=== PATIENT | male | born 1940 | race Caucasian/White ===

== ENCOUNTER 2016-12-19 16:14 | Inpatient (IN) ==
[2016-12-19] MEDS ORDERED: NS 3,000 ML ONE (16:41)
[2016-12-19] MEDS ORDERED: ADENOCARD ONE (16:41)
[2016-12-19] MEDS ORDERED: ASPIRIN PO STA (16:42)
[2016-12-19] MEDS ORDERED: AMIDATE ONE (16:52)
[2016-12-19] MEDS ORDERED: MORPHINE ONE (16:52)
[2016-12-19 17:15] LABS: BLOOD TYPE ARTERIAL; SAMPLE BLOOD
[2016-12-19] MEDS ORDERED: NS 1,000 ML IV ONE ×2 (17:16→17:18)
[2016-12-19] MEDS ORDERED: AMIDATE IV ONE (17:16)
[2016-12-19] MEDS ORDERED: ADENOCARD IV ONE ×2 (17:17)
[2016-12-19 17:18] LABS: ALLEN TEST NO; BE -3.8 mmoll (-3.0-3.0); DRAW SITE R BRACHIAL; PCO2(98.6) 28 mmHg (35-45); PO2(98.6) 79 mmHg (60-100); pH(98.6) 7.44 (7.35-7.45)
[2016-12-19 17:19] LABS: MODALITY CANNULA
[2016-12-19 17:36] LABS: MANUAL DIFF NEEDED? NO
[2016-12-19 17:42] LABS: BASO% 0.3 % (0.0-0.8); HEMATOCRIT 30.3 % (42.0-52.0); HEMOGLOBIN 10.1 g/dL (14.0-18.0); IMM GRAN# 0.43 X1000 (0.0-0.04); IMM GRAN% 2.6 % (0.0-0.5); LYMPH# 1.58 X1000 (1.2-3.4); LYMPH% 9.5 % (20.5-51.1); MCH 30.8 PG (27-31); MCHC 33.3 g/dL (33-37); MCV 92.4 FL (81-99); MONO# 1.07 X1000 (0.11-0.59); MONO% 6.4 % (1.7-9.3); MPV 9.7 FL (7.4-10.4); NEUT% 81.2 % (42.2-75.2); PLT 310 X1000 (130-400); RBC 3.28 XMIL (4.7-6.1)
[2016-12-19 17:51] LABS: INR 1.46; PROTIME 15.7 Seconds (9.2-11.7); PTT 30.6 Seconds (22.0-36.0)
[2016-12-19 18:03] LABS: AGAP 19; ALBUMIN 3.2 g/dL (3.5-5.0); ALKALINE PHOSPHATASE 60 U/L (32-122); BUN 42 mg/dL (8-22); CALCIUM 8.9 mg/dL (8.8-10.2); CHLORIDE 101 mmol/L (98-107); CK PROFILE 63 U/L (24-204); COSMO 295; GOT 15 U/L (10-34); GPT 13 U/L (10-44); MAGNESIUM 2.4 mg/dL (1.5-2.7); POTASSIUM 4.8 mmol/L (3.5-5.1); SODIUM 141 mmol/L (136-145); TCO2 21 mmol/L (25-35); TOTAL BILIRUBIN 1.56 mg/dL (0.20-1.00)
[2016-12-19] MEDS ORDERED: VANCOMYCIN 1 GM/NS 1 GM/250 ML IVPB IV ONE (18:26)
[2016-12-19] MEDS ORDERED: ZOSYN 2.25 GM/NS 2.25 GM/50 ML IVPB IV ONE (18:27)
--- NOTE | 2016-12-19 18:36 | PROVIDER DOCUMENTATION ---
This chart was entered by Vivian Rios Scribe, acting as scribe for Derrek Martinez MD. HPI-Cardiac General - General Chief Complaint: Weakness Stated Complaint: WEAKNESS/DIZZINESS Time Seen by Provider: 12/19/16 16:45 Source: patient, family Allergies/Adverse Reactions: Patient Allergies Allergy/AdvReac Type Severity Reaction Status Date / Time No Known Allergies Allergy Verified 12/19/16 17:55 Home Medications: Home Medication List Medication Instructions Recorded Confirmed Last Taken Type Budesonide/Formoterol Fumarate 2 puff PO BID 01/23/16 12/19/16 12/19/16 History [Symbicort 160-4.5 Mcg Inhaler] Dexamethasone 2 mg PO BID 12/19/16 12/19/16 12/19/16 History Dronabinol [Marinol] 2.5 mg PO QHS 12/19/16 12/19/16 12/18/16 History Hydrocodone/Acetaminophen [[place] 1 each PO Q4H PRN 12/19/16 12/19/16 12/19/16 History 5-325 Tablet] Methylphenidate HCl [Ritalin] 5 mg PO DAILY 12/19/16 12/19/16 12/19/16 History Rivaroxaban [Xarelto] 15 mg PO BID 12/19/16 12/19/16 12/19/16 History Temazepam [Restoril] 30 mg PO QHS 12/19/16 12/19/16 12/18/16 History Venlafaxine E.r. [Effexor Xr] 150 mg PO QHS 12/19/16 12/19/16 12/18/16 History - History of Present Illness-Cardiac Nature of Presenting Problem: PT IS A 76YOM PRESENTING TO THE ED C/O WEAKNESS. PTS FAMILY STATES THAT PT IS NORMALLY BED BOUND DUE TO STAGE 4 LUNG CANCER. PT C/O INCREASED SOB AND WEAKNESS. WHEN PT ARRIVED TO ED HE WAS IN A-FLUTTER W/ 2:[address] MARTINEZ AT BEDSIDE ATTEMPTING TO CARDIOVERT PT. Location: denies: substernal Quality of Pain: reports: none Severity in ED: severe Onset/Duration: just prior to arrival Timing: still present Context/Activities at Onset: reports: light activity Modifying Factors: improves with: nothing Palpitation Quality: irregular History of arrythmia: reports: other (A-FLUTTER) Recent use of:: reports: no stimulants Nitro Today/Relief: reports: no nitro taken today Aspirin Treatment Today: reports: no aspirin today Prior Chest Pain/Cardiac Workup: reports: echocardiography Associated Symptoms: reports: fatigue, nausea, shortness of breath, weakness. denies: abdominal pain, diaphoresis, syncope Similar Symptoms Previously?: No Recently Seen Here or By Another Healthcare Provider: No Review of Systems - Adult - REVIEW OF SYSTEMS - ADULT ROS:: ROS per family Constitutional: reports: see HPI, fatique. denies: fever, night sweats Eyes: reports: no symptoms reported Ears, Nose, Mouth & Throat: reports: no symptoms reported Cardiovascular: reports: see HPI, irregular heart rate, palpitations. denies: chest pain, syncope Respiratory: reports: see HPI, cough, shortness of breath. denies: wheezing Gastrointestinal: reports: no symptoms reported Genitourinary: reports: no symptoms reported Musculoskeletal: reports: no symptoms reported Integumentary: reports: no symptoms reported Neurological: reports: see HPI, dizziness/vertigo. denies: paresthesia, slurred speech Psychiatric: reports: no symptoms reported Endocrine: reports: no symptoms reported Hematologic/Lymphatic: reports: no symptoms reported Allergic/Immunologic: reports: no symptoms reported All Other Systems: Reviewed and Negative Past History - Adult - PAST MEDICAL HISTORY-ADULT Review of Records: reports: Old Records Reviewed, Nursing Assessment Review, Medications Reviewed, Social history reviewed & non-contributory. Major Childhood Illnesses: reports: denies history Cardiovascular: reports: denies history Respiratory: reports: denies history Gastrointestinal: reports: denies history Obstetrical/Gynecological: reports: denies history Genitourinary: reports: denies history Musculoskeletal: reports: denies history Neurological: reports: denies history Endocrine/Immune: reports: denies history Other Conditions: reports: denies history - IMMUNIZATION STATUS Childhood Immunizations: See Nurse Assessment Flu Vaccine: See Nurse Assessment - FAMILY HISTORY Family History: reviewed, not pertinent - SOCIAL HISTORY Smoking: cigarettes, less than 1 pack/day Provider spent 3-5 mins advising pt. on dangers of tobacco.: Discussed manners to quit use, and f/u contacts for add'l counseling. Substance Use: none/never, alcohol Alcohol Use Frequency: occasionally Number of drinks per typical drinking period:: 3-4 drinks Living Situation: family Physical Exam-General - PHYSICAL EXAM-ADULT Initial Vital Signs Reviewed: Yes - CONSTITUTIONAL General Appearance: alert, moderate distress, severe distress, thin. negative: appears well, no apparent distress - EYES Eyes: PERRL/EOMI, pink conjunctivae, fundi clear, no AV nicking - HEAD, EARS, NOSE, MOUTH & THROAT HENMT: normocephalic/atraumatic, moist mucous membranes, normal ENT inspection, TMs normal, pharynx normal - NECK Neck: non-tender, full range of motion, supple, normal inspection - RESPIRATORY Respiratory: chest non-tender, lungs clear, normal breath sounds, no pleuratic chest pain, no respiratory distress, no accessory muscle use - CARDIOVASCULAR Cardiovascular: no edema, no gallop, no JVD, no murmur, tachycardia. negative: normal peripheral pulses, regular rate, rhythm - GASTROINTESTINAL (ABDOMEN) Abdominal Exam: normal bowel sounds, non tender, soft, no organomegaly, no pulsatile mass - LYMPHATIC Lymphatic: no adenopathy - MUSCULOSKELETAL Back Exam: normal inspection, no CVA tenderness, no vertebral tenderness Extremity: non-tender, no pedal edema, no calf tenderness, normal capillary refill, pelvis stable. negative: normal range of motion, normal gait, normal inspection - SKIN Integumentary: normal turgor, warm/dry, cyanosis, pallor - NEUROLOGIC Neurologic: take out waitress II-XII nml as tested, grossly normal, no motor/sensory deficits - PSYCHIATRIC Psych/Mental Status: normal thought content, normal thought process, oriented x 3, depressed affect. negative: normal mood/affect Progress - PLAN OF CARE/RESULTS Progress/Plan/Lab Results: Vital Signs - 8 hr 12/19/16 16:18 12/19/16 17:40 12/19/16 17:52 Temperature 97.4 F L Pulse Rate 161 H 85 81 Respiratory Rate 24 25 H 16 Blood Pressure 118/68 170/74 152/88 O2 Sat by Pulse Oximetry 100 100 12/19/16 18:25 Temperature Pulse Rate 76 Respiratory Rate 16 Blood Pressure 139/74 O2 Sat by Pulse Oximetry 100 Laboratory Results - last 24 hr 12/19/16 12/19/16 12/19/16 16:35 16:35 16:35 WBC 16.65 H RBC 3.28 L Hgb 10.1 L Hct 30.3 L MCV 92.4 MCH 30.8 MCHC 33.3 RDW Std Deviation 15.6 H Plt Count 310 MPV 9.7 Immature Gran % (Auto) 2.6 H Neut % (Auto) 81.2 H Lymph % (Auto) 9.5 L [place] % (Auto) 6.4 Eos % (Auto) 0.0 Baso % (Auto) 0.3 Immature Gran # (Auto) 0.43 H Neut # (Auto) 13.52 H Lymph # (Auto) 1.58 [place] # (Auto) 1.07 H Eos # (Auto) 0.00 Baso # (Auto) 0.05 PT 15.7 H INR 1.46 PTT (Actin FS) 30.6 Specimen Type Sample Site pH pCO2 pO2 HCO3 Base Excess Fawad Test A-a O2 Difference Lactate Liter Flow Blood Gas Modality FiO2 % Sodium 141 Potassium 4.8 Chloride 101 Carbon Dioxide 21 L Anion Gap 19 BUN 42 H Creatinine 0.8 Estimated GFR/1.73 m2 > 60 BUN/Creatinine Ratio 53 Glucose 157 H Calculated Osmolality 295 Calcium 8.9 Magnesium 2.4 Total Bilirubin 1.56 H AST 15 ALT 13 Alkaline Phosphatase 60 Creatine Kinase 63 Troponin T Total Protein 6.0 L Albumin 3.2 L Globulin 2.8 Albumin/Globulin Ratio 1.1 12/19/16 12/19/16 16:35 17:05 WBC RBC Hgb Hct MCV MCH MCHC RDW Std Deviation Plt Count MPV Immature Gran % (Auto) Neut % (Auto) Lymph % (Auto) [place] % (Auto) Eos % (Auto) Baso % (Auto) Immature Gran # (Auto) Neut # (Auto) Lymph # (Auto) [place] # (Auto) Eos # (Auto) Baso # (Auto) PT INR PTT (Actin FS) Specimen Type ARTERIAL Sample Site R BRACHIAL pH 7.44 pCO2 28 L pO2 79 HCO3 21.9 Base Excess -3.8 L Fawad Test NO A-a O2 Difference 86.0 Lactate 2.80 H Liter Flow 2.0 Blood Gas Modality CANNULA FiO2 % 28.0 Sodium Potassium Chloride Carbon Dioxide Anion Gap BUN Creatinine Estimated GFR/1.73 m2 BUN/Creatinine Ratio Glucose Calculated Osmolality Calcium Magnesium Total Bilirubin AST ALT Alkaline Phosphatase Creatine Kinase Troponin T < 0.010 Total Protein Albumin Globulin Albumin/Globulin Ratio Orders Category Date Time Status Cardiac Monitoring DIRECTED Care 12/19/16 16:42 Active Celeste Cath Insertion ORDERED Care 12/19/16 18:24 Active Oxygen Therapy- ED Nursing DIRECTED Care 12/19/16 16:42 Active Saline Loc NOW Care 12/19/16 16:42 Active CHEST-PORTABLE [RAD] Stat Exams 12/19/16 16:42 Taken ABG [RESP] Routine Lab 12/19/16 17:05 Completed BC [BLOOD CULTURE] [BLDCUL] Stat Lab 12/19/16 18:25 Uncollected CBC WITH ELECTRONIC DIFF [HEME] Stat Lab 12/19/16 16:35 Completed CK PROFILE [SP CHEM] Stat Lab 12/19/16 16:35 Completed COMPREHENSIVE METABOLIC PANEL [CHEM] Stat Lab 12/19/16 16:35 Completed MAGNESIUM [CHEM] Stat Lab 12/19/16 16:35 Completed PRO B-NATRIURETIC PEPTIDE Stat Lab 12/19/16 16:35 Received PROTIME WITH INR [COAG] Stat Lab 12/19/16 16:35 Completed PTT [COAG] Stat Lab 12/19/16 16:35 Completed TROPONIN T Stat Lab 12/19/16 16:35 Completed UA NIMS W/REFLEX CULT [URINALYSIS] Stat Lab 12/19/16 18:25 Uncollected 0.9% Sodium Chloride Inj [Ns] 1,000 ml Med 12/19/16 16:41 Discontinued .ROUTE As Directed 0.9% Sodium Chloride Inj [Ns] 1,000 ml Med 12/19/16 17:16 Discontinued IV 999 mls/hr 0.9% Sodium Chloride Inj [Ns] 1,000 ml Med 12/19/16 17:18 Discontinued IV 999 mls/hr Adenosine [Adenocard] Med 12/19/16 16:41 Discontinued 18 mg .ROUTE .STK-MED ONE Adenosine [Adenocard] Med 12/19/16 17:17 Discontinued 6 mg IV NOW ONE Adenosine [Adenocard] Med 12/19/16 17:17 Discontinued 6 mg IV NOW ONE Aspirin Med 12/19/16 16:42 Discontinued 325 mg PO STAT STA Etomidate [Amidate] Med 12/19/16 16:52 Discontinued 40 mg .ROUTE .STK-MED ONE Etomidate [Amidate] Med 12/19/16 17:16 Discontinued 40 mg IV NOW ONE Morphine Med 12/19/16 16:52 Discontinued 2 mg .ROUTE .STK-MED ONE Piperacil/Tazobact 2.25 gm/Ns [Zosyn 2.25 gm/Ns] Med 12/19/16 18:27 Active 2.25 gm in 50 ml IV NOW Vancomycin 1 gm/Ns Med 12/19/16 18:26 Active 1 gm in 250 ml IV NOW EKG [EKG] Stat Ther 12/19/16 16:42 Ordered Result Diagrams: 12/19/16 16:35 12/19/16 16:35 - EKG 1 Time of EKG reading by physician:: 16:25 EKG Read and Signed by:: Derrek Martinez EKG Interpretation (*Must complete 3 of following elements*): Abnormal Rate: 161 Rhythm: A-FLUTTER W/ 2:[address] Wave: non-specific ST changes Prior EKG Comparison: changes noted 2 Time of EKG reading by physician:: 17:06 EKG Read and Signed by:: Derrek Martinez EKG Interpretation (*Must complete 3 of following elements*): Abnormal Rate: 89 Rhythm: SR W/ PAC'S Prior EKG Comparison: changes noted - XRAY 1 XRAY: Bilateral XRAY Study: Chest (CARDIOMEGALLY, PULMONARY VASCULAR CONGESTION) Procedures - CARDIOVERSION/DEFIBRILLATION Procedure, Risk, Benefits and Alternatives discussed with:: Patient, Family Members Consent form signed?: Yes Time-Out Verification Completed?: Yes Cardioverted/Defibrillated at:: 2 ROUNDS 6MG ADENOSINE AND DEFIBBED AT 75JULES Post Cardioversion/Defibrillation Rate: SR W/PAC'S Procedure Comment: PT CONVERTED SUCCESSFULLY Departure - Departure Time of Disposition Decision: 18:33 DIAGNOSIS: Shock circulatory, Atrial flutter, Lung cancer Disposition: ADMITTED INPATIENT 09 Certified Medical Emergency: Emergent Condition: Critical Referrals and Follow-Ups: Guzman Henning MD [Primary Care Provider] - - Critical Care Note This patient required my direct personal management.: Yes Total Time (mins): 60 (DR MARTINEZ) Critical Care Statement: This patient required my direct personal management to treat or rule out processes, the absence of which, could potentiallly result in sudden, clinically significant life or limb threatening deterioration. This chart was documented by the indicated scribe, (Vivian Rios Scribe) and accurately reflects the services I performed and decisions made by me, Derrek Martinez MD, as attested by the provider's signature.
[2016-12-19 19:43] LABS: URINE CULTURE NEEDED? NO; URINE MICRO REVIEW NEEDED? NO; URINE SOURCE CATH
[2016-12-19 19:51] LABS: BILIRUBIN URINE NEGATIVE (NEGATIVE); BLOOD URINE NEGATIVE (NEGATIVE); COLOR YELLOW; GLUCOSE URINE NEGATIVE (NEGATIVE); LEUKOCYTES URINE NEGATIVE (NEGATIVE); NITRITE URINE NEGATIVE (NEGATIVE); PH URINE 5.5; PROTEIN URINE TRACE mg/dL (NEGATIVE); SP GRAVITY URINE 1.021; TURBIDITY URINE CLEAR (CLEAR); UROBILINOGEN URINE NORMAL (NORMAL)
[2016-12-19 19:53] LABS: UR EPITHELIAL CELLS <10 /HPF (<10); URINE BACTERIA NEGATIVE /HPF; URINE RBC <10 /HPF (<10); URINE WBC <10 /HPF (<10)
[2016-12-19] MEDS ORDERED: CARDIZEM IV ONE (21:05)
[2016-12-19] MEDS ORDERED: CARDIZEM 100 MG/NS 100 MG/100 ML IVPB ONE (21:17)
[2016-12-19] MEDS: CARDIZEM 100 MG/NS 100 MG/100 ML IVPB IV SCH ×3 (21:19→22:49)
[2016-12-19] MEDS ORDERED: ZOFRAN IV PRN (21:41)
[2016-12-19] MEDS ORDERED: LEVOPHED 8 MG in D5 1/2 NS 250 ML IV SCH (22:45)
[2016-12-19] MEDS ORDERED: TYLENOL PO PRN (23:54)
[2016-12-20] MEDS: PROTONIX IV SCH (02:07)
[2016-12-20] MEDS: SODIUM CHLORIDE 0.9% INJ SCH (02:08)
[2016-12-20] MEDS ORDERED: VANCOMYCIN IV PER PHARMACY MISC SCH (02:45)
[2016-12-20] MEDS: ZOSYN 3.375 GM/NS 3.375 GM/50 ML IVPB IV SCH ×4 (03:22→20:14)
[2016-12-20] MEDS ORDERED: VANCOMYCIN 500 MG/NS 500 MG/100 ML IVPB IV ONE (04:00)
[2016-12-20 04:59] LABS: MANUAL DIFF NEEDED? NO
[2016-12-20 05:02] LABS: BASO% 0.2 % (0.0-0.8); EOS# 0.03 X1000 (0.0-0.7); EOS% 0.2 % (0.0-10.0); HEMATOCRIT 25.5 % (42.0-52.0); HEMOGLOBIN 8.4 g/dL (14.0-18.0); IMM GRAN# 0.39 X1000 (0.0-0.04); IMM GRAN% 2.4 % (0.0-0.5); LYMPH# 1.78 X1000 (1.2-3.4); LYMPH% 11.1 % (20.5-51.1); MCH 30.5 PG (27-31); MCHC 32.9 g/dL (33-37); MCV 92.7 FL (81-99); MONO# 1.36 X1000 (0.11-0.59); MONO% 8.4 % (1.7-9.3); MPV 9.4 FL (7.4-10.4); NEUT% 77.7 % (42.2-75.2); PLT 252 X1000 (130-400); RBC 2.75 XMIL (4.7-6.1)
[2016-12-20 05:26] LABS: AGAP 12; ALBUMIN 2.7 g/dL (3.5-5.0); ALKALINE PHOSPHATASE 50 U/L (32-122); BUN 33 mg/dL (8-22); CALCIUM 7.8 mg/dL (8.8-10.2); CHLORIDE 110 mmol/L (98-107); COSMO 293; GOT 13 U/L (10-34); GPT 10 U/L (10-44); MAGNESIUM 2.1 mg/dL (1.5-2.7); POTASSIUM 4.4 mmol/L (3.5-5.1); SODIUM 144 mmol/L (136-145); TCO2 22 mmol/L (25-35); TOTAL BILIRUBIN 1.54 mg/dL (0.20-1.00); TOTAL PROTEIN 5.1 g/dL (6.3-8.3)
--- NOTE | 2016-12-20 05:50 | EKG Report ---
Test Performed on : 12/19/2016 9:08:17 PM Test Reason : CP Blood Pressure : / mmHG Vent. Rate : 158 BPM Atrial Rate : 159 BPM P-R Int : 000 ms QRS Dur : 080 ms QT Int : 294 ms P-R-T Axes : 000 017 007 degrees QTc Int : 476 ms Supraventricular tachycardia. Low voltage QRS Nonspecific ST and T wave abnormality Abnormal ECG When compared with ECG of 19-DEC-2016 17:06, (Unconfirmed) Sinus rhythm. has replaced Atrial fibrillation. Vent. rate has increased BY 69 BPM Questionable change in QRS duration Unconfirmed Result
--- NOTE | 2016-12-20 05:50 | EKG Report ---
Test Performed on : 12/19/2016 5:06:34 PM Test Reason : Chest Pain Blood Pressure : / mmHG Vent. Rate : 089 BPM Atrial Rate : 312 BPM P-R Int : 000 ms QRS Dur : 058 ms QT Int : 360 ms P-R-T Axes : 000 061 063 degrees QTc Int : 438 ms Atrial fibrillation. Nonspecific ST and T wave abnormality Abnormal ECG When compared with ECG of 19-DEC-2016 16:25, (Unconfirmed) Atrial fibrillation. has replaced Atrial flutter. Vent. rate has decreased BY 72 BPM Unconfirmed Result
--- NOTE | 2016-12-20 05:50 | EKG Report ---
Test Performed on : 12/19/2016 4:25:15 PM Test Reason : SOB/WEAKNESS Blood Pressure : / mmHG Vent. Rate : 161 BPM Atrial Rate : 322 BPM P-R Int : 000 ms QRS Dur : 110 ms QT Int : 286 ms P-R-T Axes : 055 073 076 degrees QTc Int : 468 ms Atrial flutter. with 2:[address] abnormality Abnormal ECG No previous ECGs available Unconfirmed Result
--- NOTE | 2016-12-20 07:45 | Diag Imaging Result Document ---
PROCEDURE NAME: CHEST-PORTABLE - 12/19/2016 AP PORTABLE CHEST: TIME: 1720 hours. FINDINGS: The inspiration is suboptimal. Considering the degree of inspiration and the technical differences, there has been no significant change since 01/23/2016. IMPRESSION: Stable chest.
[2016-12-20] MEDS: XARELTO PO SCH (08:35)
--- NOTE | 2016-12-20 09:07 | HISTORY AND PHYSICAL ---
PRIMARY CARE PROVIDERS: Dr. Raghav Henning. ONCOLOGIST: Tigre Agee MD. CHIEF COMPLAINT: Increasing weakness and dizziness. HISTORY OF PRESENT ILLNESS: Mr. Funes is a 76-year-old, male with past medical history of COPD and stage IV non-small cell lung cancer. He presented to the ER tonight with complaints of increased weakness. He also reports that he has felt dizzy intermittently for the past 3 days. Though he did report some shortness of breath upon arrival to the ER, he denied having any shortness of breath, chest pain or feelings of palpitations over the last few days. His daughter who is at bedside who helps care for him states that he has not had a lot of energy lately, and states that he has been bed bound and has not been getting up. She also reports that he has had increased number of falls. She states that he fell off of the toilet several days ago and approximately 2-3 days ago he fell out of bed. She did report that approximately 2-3 days ago they did give him a new prescription for Ritalin 5 mg p.o. daily, as well as a did increase his dosage of Effexor XR to 150 mg p.o. at bedtime from 75 mg previously. Patient does see Dr. Agee, though he missed his last appointment. He denied any history of chemotherapy or radiation therapy for treatment of his lung cancer, though she did report that he has previously received Opdivo. The patient also has a history of having a pulmonary embolism and a right lower extremity DVT approximately 3 months ago for which he was placed on Xarelto 15 mg twice a day. He does report a productive cough with clear sputum for approximately 3 weeks. He denies any fever, body aches, or chills. He denies any headache, chest pain, palpitations, abdominal pain, nausea, vomiting, diarrhea, or constipation. He reports that his last bowel movement was yesterday morning. He denies any hematochezia or melena. He denies any dysuria or urinary frequency. He denies any pain, numbness, tingling or swelling in extremities. Upon evaluation in the ER, the patient was found to have an elevated heart rate of 161. Respirations were 24, blood pressure was 118/68, temperature was 97.4 degrees, oxygen saturation was 100% nasal cannula at 4 L. Initial EKG showed atrial flutter with 2-1 AV conduction at a rate of 161; QTc was 468. The patient was given two separate doses of adenosine 6 mg each. Unfortunately his heart rate did not improve. He was subsequently cardioverted in the ER. During my assessment in the ER the patient did convert back to what appeared to be an atrial flutter rhythm again anywhere from 160- 170. He was given a 10 mg Cardizem push which did slow his heart rate down to 130, though this quickly increased back up to 160. He was subsequently placed on a Cardizem drip. We started this at 5 mg and have been titrating this to effect. The patient did previously receive 2 L normal saline bolus upon arrival to the ER, and at this time fortunately he has been maintaining adequate blood pressures. Patient does have crackles noted in bilateral lower lobes, as well as some expiratory wheezing noted as well. His chest x-ray at this time does not appear to have any findings of pulmonary edema, pleural effusions or pneumonia, though it is consistent with the findings for COPD disease. We will admit the patient for further treatment and evaluation of his new onset atrial flutter. He will be placed in the ICU. REVIEW OF SYSTEMS: A 12 point review of systems was conducted with the patient. All were negative except for pertinent positives mentioned above in the HPI. PAST MEDICAL HISTORY: 1. COPD disease. 2. Non-small cell lung cancer reported in right upper lobe and left lower lobe. 3. The patient does have a history of pulmonary embolism and a right lower extremity DVT. PAST SURGICAL HISTORY: Left knee surgery. SOCIAL HISTORY: The patient reports that he smoked 1/2 pack of cigarettes a day for 60 years, though quit approximately 2 weeks ago. He does report occasional alcohol use stating that he drinks a beer every now and then. Though denies any illicit drug use. FAMILY HISTORY: Positive for diabetes mellitus. ALLERGIES: Patient reports no known allergies. HOME MEDICATIONS: 1. Symbicort 160 mg-4.5 mcg inhaler 2 puffs p.o. b.i.d. 2. Dexamethasone 2 mg p.o. b.i.d., 2 tablets in the morning and 1 in the afternoon. 3. Marinol 2.5 mg p.o. at bedtime. 4. Pickering 5 mg 1 p.o. q.4 hours p.r.n. 5. Ritalin 5 mg p.o. daily. 6. Xarelto 15 mg p.o. b.i.d. 7. Restoril 30 mg p.o. at bedtime. 8. Effexor XR 150 mg p.o. at bedtime. DIAGNOSTIC DATA/LABORATORY RESULTS: White blood cell count 16.65, hemoglobin 10.1, hematocrit 30.3, platelet count is 310,000. PT 15.7, INR 1.46, PTT 30.6. Sodium 141, potassium 4.8, chloride 101, bicarb 21, BUN 42, creatinine 0.8, GFR greater than 60. Glucose was 157, repeat fingerstick blood sugar was 78, calcium 8.9, magnesium 2.4, total bilirubin is 1.56. AST 15, ALT 13, alkaline phosphatase 60, CK 63, troponin less than 0.01. ProBNP was 1056. Plasma lactate 1.3. Arterial blood gases were obtained on a nasal cannula at 2 L; pH 7.4, pCO2 28, PO2 79, HC03 21.9 with a base excess of -3.8. Urinalysis obtained via cath was positive for trace protein and trace ketones. It was negative for blood and nitrites, leukocytes, white blood cells with bacteria. EKG showed atrial flutter with 2:1 AV conduction at a rate of 161 with a QTc of 468. Chest x-ray showed findings of COPD disease, though no obvious pneumonia, pleural effusions or pulmonary edema present, but we are awaiting the official radiology over read. PENDING DIAGNOSTIC STUDIES: At this time, repeat cardiac enzymes as well as blood cultures. PHYSICAL EXAMINATION: VITAL SIGNS: Temperature 98.6 degrees, heart rate is 84. Respirations 16, blood pressure 150/77, oxygen saturation is 100% nasal cannula at 2 L. GENERAL: Mr. Funes is a pleasant 76-year-old, male, who was resting in the ER stretcher. He is in no acute distress. He was awake, alert, able to answer all questions appropriately. HEENT: Head is atraumatic, normocephalic. Pupils are equal, round, reactive to light. Were 3 mm bilaterally and brisk. Subconjunctivae were slightly pale. Oral mucosa was moist. Oropharynx was clear. NECK: Supple. Trachea midline. No JVD noted. No carotid bruits noted upon auscultation bilaterally. CARDIOVASCULAR: Patient has normal S1, S2. No murmurs, gallops, or rubs appreciated with a regular rate in the 80s with a slightly irregular rhythm. At this time the patient appears to be in sinus rhythm with occasional PACs and PVCs as well. PULMONARY: Patient has symmetrical chest expansion bilaterally. The lung moreno did have some expiratory wheezing noted. Bilateral lower lung moreno have crackles noted. The patient's oxygen saturation at this time is nasal cannula 100% NC @ 2L. ABDOMEN: Soft, nontender, nondistended. Bowel sounds are present in all 4 quadrants and were normoactive. GENITOURINARY: Patient has a Celeste catheter in place with light kandis colored urine noted to Celeste drainage bag. EXTREMITIES: No cyanosis, clubbing, or edema noted. Motor and sensory were intact in all extremities. Radial pulses were 2+ bilaterally. Pedal pulses were 2+ bilaterally. Capillary refill is less than 3. INTEGUMENTARY: The patient's skin is pink, warm, dry, and intact. No lesions or sores noted, though the patient does have some areas of ecchymosis from reported falls on the bilateral arms and elbows, as well as a large area of ecchymosis that runs from just above his posterior left knee up to his left buttock area. NEUROLOGICAL: Patient is alert, oriented to person, place, time, and situation. Cranial nerves 2- 12 appear to be grossly intact. ASSESSMENT AND PLAN: 1. New onset atrial flutter. At this time the patient is on a Cardizem drip. He is presently in sinus rhythm with occasional PACs. We will continue to monitor his heart rate closely as well as his blood pressure. We have placed a consult with cardiology for Dr. Basurto and will await their evaluation and further recommendations as well. We will do a series of cardiac enzymes and perform an echocardiogram in the morning. The patient was previously Xarelto 15 mg twice a day for the diagnosis of a pulmonary embolism and DVT 3 months ago. He states he has been taking this dosage since being diagnosed with his pulmonary embolism and deep venous thrombosis. We have changed this to 20 mg p.o. daily and we will continue to follow. 2. Stage IV [id number] lung cancer. For this we have placed a consult with Dr. Agee and will await his evaluation and further recommendations. 3. Chronic obstructive pulmonary disease. We will continue the patient's Symbicort. We have placed a p.r.n. order for a DuoNeb treatment as needed and will continue to follow as well. 4. Leukocytosis. Patient did have a white blood cell count of 16.65, though at this time this is of certain of uncertain etiology. The patient's chest x-ray showed no signs of a pneumonia. His urinalysis was negative. He has been placed on antibiotics of vancomycin and Zosyn. Blood cultures have been obtained and we will continue to monitor him closely and rule out any other signs of infection. 5. History of pulmonary embolism and a right lower extremity deep venous thrombosis. Previously mentioned, we will continue the patient's Xarelto, though have changed this to 20 mg p.o. once daily. 6. Weakness. Patient's daughter reports that he has had increased weakness and has been bed bound. She reports that the patient has had decreased energy. He has been not wanting to get out of bed. He also has had increased number of falls. She states that he has been eating well up until the past few days. We will place a consult for dietary as well as social sciences chair and case management for possible rehab placement or home health upon the patient' s discharge. Once the patient's condition is improved and he is more stable. We will also place a consult for physical therapy. 7. The patient was placed on ICU with telemetry. He will have vital signs per ICU protocol. Deep vein thrombosis prophylaxis is currently being provided with Xarelto. He will be on regular diet, though after midnight we have placed him NPO for his cardiology consult in the morning. We will repeat an EKG in the morning as well as a CBC, CMP and magnesium. I did discuss with the patient his wishes towards his code status, and the patient did state that he wanted to be a full code. He did want CPR and intubation, as well as life- saving cardiac drugs to be given if necessary. Further orders and recommendations pending hospital course, diagnostic studies and physician evaluation. Dictated by EMIL Morris for Harley Sidhu MD cc: MD Tigre Willoughby MD Lloyd James, MD MTDD
--- NOTE | 2016-12-20 12:05 | PROGRESS NOTE ---
DATE: 12/20/2016 Apparently presented to the emergency room with weakness and dizziness. MEDICATION AT HOME: He was on budesonide or Symbicort inhaler, dexamethasone 2 mg b.i.d., Marinol 2.5 mg at bedtime, hydrocodone acetaminophen which was 5-325 one q.4 hours. He was on Ritalin 5 mg a day. Xarelto 50 mg b.i.d. Restoril 30 mg at bedtime, and Effexor 150 mg daily. Presents with weakness. Normally he is bed-bound due to stage IV lung cancer. Patient complained of increased shortness of breath and weakness. Patient arrived in the emergency room. He was in atrial flutter with 2:1 conduction and I think attempt to chemical cardiovert. PAST MEDICAL HISTORY: I am not sure I have much information on that right now. Presently he is ICU bed 5. He was awake. Just finished an echocardiogram. Temp 97.8, pulse 74, respirations 17, blood pressure 130/67.HEENT: Pupils are equal, round. Lungs: Are clear in all lung moreno. Cardiovascular: Regular rhythm and rate without murmur or S3. Abdomen: Soft. Skin: Is warm and dry. Urine output 700 mL. White count 73472. Hematocrit 25, platelet count 252,000. That was this morning. Hemoglobin was 10 yesterday and hematocrit was 30. Electrolytes: Sodium 144, potassium 4.4, chloride 110, bicarb 22, BUN 33, creatinine 0.6. Chest x-ray from yesterday, stable chest. Under review back in past medical history, he has had a previous CT of his chest on 12/02/2016. Some fibrosis in the right upper lobe apex. There is speculated nodule present medially in the right upper lobe, decreased from 3.1 to 2.6 cm in the transverse dimension so improved lesion in the right upper lobe and left lower lobe. Otherwise that was stable. EKG this morning, supraventricular tachycardia. Low-voltage QRS. Nonspecific ST and T-wave abnormality. Rate is approximately 158. Not sure this may be flutter with 2:1 conduction. 1. Generalized weakness. 2. Apparently lung mass with lung cancer. Not sure if his history, see if we can obtain some furthe r history. Treating him for possible pneumonia as well. Dose of Zosyn and vancomycin. He is on Zosyn and vancomycin now, Zosyn 3.375 mg IV q.6. vancomycin 1.4 g daily every 30 hours, Xarelto 20 mg a day. Protonix 40 mg IV q.24 hours. He is on a [facility] drip. Dr. Agee is consulted. Dr. Basurto consulted. cc: Fawad Anderson MD
[2016-12-20] MEDS: CARDIZEM CD PO SCH (12:35)
--- NOTE | 2016-12-20 12:58 | CONSULTATION ---
DATE OF CONSULTATION: 12/20/2016 REASON FOR CONSULTATION: Cardiology was consulted. The patient had atrial flutter and underwent cardioversion in the emergency room. HISTORY OF PRESENT ILLNESS: The patient is a 76-year-old gentleman with history of COPD, stage IV non-small cell lung cancer, came to the emergency room with complaints of increasing weakness. He was noted to be dizzy as well. Was noted to be in atrial flutter, rapid ventricular rate. Cardizem was given. Subsequently his heart rate went up. He was cardioverted to sinus rhythm. At the current time he is on Cardizem drip, in sinus rhythm. He does not complain of chest pain suggestive of angina. He has had multiple problems with pulmonary embolism in the past. He is on anticoagulation therapy with Xarelto. Was diagnosed to have multiple emboli as well as DVT in the past. From a cardiac standpoint, denies chest pain. There is no discomfort. REVIEW OF SYSTEM: Fourteen point review of system was done.GI system: There is no history of nausea, vomiting, or diarrhea. There is no history of hematemesis or melena. Central nervous system: No focal weakness to suggest a CVA or TIA. Genitourinary: There is no dysuria or hematuria. PAST MEDICAL HISTORY: 1. COPD. 2. Non-small cell carcinoma involving the right upper and left lower lobe. 3. History of pulmonary embolism and DVT in the past. 4. Left knee surgery. SOCIAL HISTORY: Patient smoked a half pack of cigarettes a day for 60 years; quit 2 weeks ago. Does not complain of alcohol abuse. FAMILY HISTORY: Positive for diabetes. ALLERGIES: Patient is not known to be allergic to any medications. MEDICATIONS: Home medications include Symbicort 160, Xarelto, Restoril, Effexor, Hooper, Marinol. PHYSICAL EXAMINATION: Vital Signs: Blood pressure 124/59. Cardiovascular System: Normal jugular venous pressure. There is no thyromegaly. No carotid bruit. First and second heart sounds heard. There was no S3 gallop. Respiratory System: Normal air entry. There was scattered wheeze. Abdomen: Soft, nontender. There was no guarding or rigidity. Bowel sounds were heard. Central nervous system: Alert. Was moving all 4 extremities. Extremities: Examination of extremities reveals no pedal edema. LABORATORY EXAMINATION: Revealed hemoglobin 8.4, hematocrit 25, platelet count of 252,000, WBC 16.10. Sodium 144, potassium 4.4, BUN 33, creatinine 0.6. Cardiac enzymes negative. Chest x-ray on 12/19/2016 unremarkable. ASSESSMENT AND PLAN: 1. Mr. Eddie Funes is a 76-year-old gentleman who came to the emergency room with weakness, was noted to be in atrial flutter, cardioverted to sinus rhythm. 2. He is currently in sinus rhythm. We will discontinue the Cardizem drip. Change him to Cardizem CD 120 mg a day. He has had an echocardiogram earlier this morning. 3. He has had deep vein thrombosis and pulmonary emboli in the past and was Xarelto 15 b.i.d. which has been changed to 20. There is a drop in hemoglobin and hematocrit. Would recommend continue watching the hemoglobin and hematocrit. 4. I have not made any other changes or recommendations from a cardiac standpoint. Thank you for the consult. We will follow hospital course. cc: Pro Basurto MD
[2016-12-20] MEDS: CARDIZEM 100 MG/NS 100 MG/100 ML IVPB IV SCH (14:04)
[2016-12-20] MEDS: DUONEB (A & A) INH PRN (15:32)
[2016-12-20] MEDS: NORCO-5 PO PRN (20:14)
--- NOTE | 2016-12-20 20:20 | ECHO REPORT ---
ORDER DATE: 12/20/2016 MEASUREMENTS: Left ventricular end-diastolic diameter 3.5, end-systolic diameter 2.9, posterior wall thickness not measured, septal thickness 0.9, left atrium 2.8, aortic root 3.4. SUMMARY: 1. Technically difficult study due to limited acoustic window quality. 2. Trileaflet aortic valve appears sclerotic but opens adequately on 2-dimensional images. Peak gradient across aortic valve is 27 mmHg with a mean gradient of 12.9 mmHg. Mitral and tricuspid valves are without structural abnormality with mild tricuspid regurgitation. The estimated systolic PA pressure by Doppler is 25 to 30 mmHg. Pulmonic valve is not well demonstrated. The aortic root is normal in size. 3. Normal left ventricular dimension suggested. Estimated left ejection fraction appears to be at least 55%. No obvious wall motion abnormality can be appreciated. Left atrium, right atrium, and right ventricle are normal in size with normal right ventricular systolic function. 4. No pericardial effusion. 5. Appearance of inferior vena cava suggests normal central venous pressure. CONCLUSIONS: 1. Technically difficult study. 2. Aortic valve sclerosis with minimal aortic stenosis. 3. Mild tricuspid regurgitation. 4. Normal left ventricular ejection fraction. cc: Cuong Diaz MD
[2016-12-21] MEDS: SODIUM CHLORIDE 0.9% INJ SCH ×2 (00:26→20:16)
[2016-12-21] MEDS: PROTONIX IV SCH ×2 (00:26→22:48)
[2016-12-21] MEDS: CARDIZEM 100 MG/NS 100 MG/100 ML IVPB IV SCH ×3 (00:33→19:56)
[2016-12-21] MEDS: ZOSYN 3.375 GM/NS 3.375 GM/50 ML IVPB IV SCH ×4 (01:57→20:16)
[2016-12-21] MEDS: XARELTO PO SCH (08:24)
[2016-12-21] MEDS: VANCOMYCIN 1,400 MG in NS 250 ML IV SCH (08:54)
[2016-12-21 10:47] LABS: BASO% 0.2 % (0.0-0.8); EOS# 0.07 X1000 (0.0-0.7); EOS% 0.5 % (0.0-10.0); HEMATOCRIT 24.6 % (42.0-52.0); HEMOGLOBIN 7.9 g/dL (14.0-18.0); IMM GRAN# 0.38 X1000 (0.0-0.04); IMM GRAN% 2.8 % (0.0-0.5); LYMPH# 1.35 X1000 (1.2-3.4); LYMPH% 10.1 % (20.5-51.1); MANUAL DIFF NEEDED? YES; MCH 30.3 PG (27-31); MCHC 32.1 g/dL (33-37); MCV 94.3 FL (81-99); MONO# 0.92 X1000 (0.11-0.59); MONO% 6.9 % (1.7-9.3); MPV 9.1 FL (7.4-10.4); NEUT% 79.5 % (42.2-75.2); PLT 248 X1000 (130-400); RBC 2.61 XMIL (4.7-6.1)
--- NOTE | 2016-12-21 10:55 | PROGRESS NOTE ---
DATE: 12/21/2016 SUBJECTIVE: Mr. Funes says he feels good. He is breathing comfortably. Remains afebrile. OBJECTIVE: Vital signs: Temperature 97.6, pulse 67, respirations 20, blood pressure 133/63. Eyes: Pupils are equal and round. Respiratory: Lungs are clear anterior, lateral. Cardiovascular: Exam regular rhythm and rate without murmur or S3. Abdomen: Soft. Skin: Warm and dry. : Urine output 1200 mL. LAB: Reviewed from yesterday. White count still elevated at 16,100, hematocrit 25, platelet count 252,000. Sodium 144, potassium 4.4, chloride 110, bicarb 22, BUN 33, creatinine 0.6, magnesium 2.1. Albumin 2.7. ASSESSMENT AND PLAN: 1. A 76-year-old, came to the emergency room with weakness and noted to have atrial flutter which was converted to sinus rhythm. Blood pressure looks good. 2. Currently in sinus rhythm. Was on a Cardizem drip. We switched him to Cardizem CD 120 mg daily. 3. History of deep venous thrombosis. Pulmonary emboli in the past. He is on Xarelto 15 mg b.i.d., which has been changed to 20 mg daily. He has a Celeste catheter in. Note that echocardiogram with Doppler was done yesterday by Dr. Chang, a technically difficult study. Aortic valve sclerosis, minimal aortic stenosis. Mild tricuspid regurgitation. Normal left ventricular function, ejection fraction. He is eating, p.o. intake seems to be good. We are treating him for pneumonia with Zosyn and vancomycin. Clinically appears to have improved. I think we can move him to [facility]. Review of his orders, I do not see any change at this point. cc: Fawad Anderson MD
[2016-12-21 10:59] LABS: AGAP 13; ALBUMIN 2.4 g/dL (3.5-5.0); ALKALINE PHOSPHATASE 48 U/L (32-122); BUN 26 mg/dL (8-22); CALCIUM 7.8 mg/dL (8.8-10.2); CHLORIDE 107 mmol/L (98-107); COSMO 289; GOT 10 U/L (10-34); GPT 9 U/L (10-44); POTASSIUM 3.8 mmol/L (3.5-5.1); SODIUM 142 mmol/L (136-145); TCO2 22 mmol/L (25-35); TOTAL BILIRUBIN 1.67 mg/dL (0.20-1.00)
[2016-12-21 11:06] LABS: BANDS 8 % (0-1); HYPOCHROM 1+; LYMPHS 8 % (21-51)
[2016-12-21] MEDS: CARDIZEM CD PO SCH (11:32)
[2016-12-21] MEDS ORDERED: NS 400 ML IV ONE (17:34)
[2016-12-21] MEDS: NS 1,000 ML IV SCH (17:39)
[2016-12-21] MEDS: NORCO-5 PO PRN (20:15)
[2016-12-22] MEDS: ZOSYN 3.375 GM/NS 3.375 GM/50 ML IVPB IV SCH ×4 (03:43→19:56)
[2016-12-22] MEDS: NS 1,000 ML IV SCH ×3 (03:43→18:36)
[2016-12-22] MEDS: CARDIZEM 100 MG/NS 100 MG/100 ML IVPB IV SCH ×3 (05:08→15:58)
--- NOTE | 2016-12-22 07:26 | PROGRESS NOTE ---
DATE: 12/22/2016 SUBJECTIVE: Mr. Funes is doing good. Feels good. Breathing comfortably. Afebrile. OBJECTIVE: It is about 6 o'clock a.m. He was awake. Had a good night.Vital signs: Temperature 98.9 degrees, pulse 60, respirations 12, blood pressure 133/65. HEENT: Pupils are equal, round. Lungs: Clear in all lung moreno. Cardiovascular: Regular rhythm and rate without murmur or S3. Abdomen: Soft. Skin: Warm and dry. Intake and output: Urine output was over 5 L. LAB: White count 13,350, hematocrit 24, platelet count of 248,000. Sodium 142, potassium 3.8, chloride 107, bicarb 22, BUN 26, creatinine 0.6. Blood sugar 78, 125. Albumin 2.4. That was yesterday's lab. ASSESSMENT AND PLAN: 1. A 76-year-old who came from the emergency room with weakness and noted to have atrial flutter versus sinus rhythm. This is doing much better. He was on Cardizem drip there. He is a Cardizem p.o. Blood pressure looks good. Hemodynamics improved. 2. History of deep venous thrombosis. He is on Xarelto 20 mg a day. 3. Nutrition. Eating well. Bowels are moving well. So, I think we can move him to [facility], waiting on a bed. In looking at his orders, I do not see any change. We will check another chest x- ray. I believe we can probably stop his antibiotics. In looking at microbiology, no growth from on cultures. He has remained afebrile. cc: Fawad Anderson MD
[2016-12-22] MEDS: CARDIZEM CD PO SCH (08:00)
[2016-12-22] MEDS: XARELTO PO SCH (08:00)
--- NOTE | 2016-12-22 08:24 | Diag Imaging Result Document ---
PROCEDURE NAME: CHEST-PORTABLE - 12/22/2016 PORTABLE CHEST: COMPARISON: Compared to 12/19/2016. FINDINGS: The lungs are well expanded. The heart is not enlarged. The vessels are not distended. There may be a small infiltrate in the left base. No pleural effusions identified. IMPRESSION: Questionable small left basilar infiltrate.
--- NOTE | 2016-12-22 12:10 | PROGRESS NOTE ---
DATE: 12/22/2016 CHIEF COMPLAINT: Shortness of breath, irregular heartbeat. SUBJECTIVE: Mr. Funes had an episode of irregular heartbeat today. He was put back on IV Cardizem. They have up titrated and down titrated the Cardizem, and right now his heart rate appears to be more stable. He seems to have frequent PACs. He apparently went back into some sort of supraventricular arrhythmia. OBJECTIVE: His pulse right now is about 75, blood pressure is 148/73, temperature 97.3, respirations 20. He is awake, alert and oriented, in no distress. HEENT: Unremarkable. Chest: Diminished breath sounds diffusely. Heart sounds irregularly irregular. Abdomen: Nontender. No masses, no hepatomegaly. Extremities: No edema. Neurologic: He moves all 4 extremities. DIAGNOSTIC DATA: Blood work today shows his magnesium is 1.8. Yesterday his sodium was 142, potassium 3.8, BUN was 26, creatinine 0.6. His white count was 13,000, hemoglobin 7.9. He had 8% bands. Chest x-ray done today shows clear lung moreno. IMPRESSION: 1. The patient is with paroxysmal atrial tachycardia, possibly flutter. 2. Chronic obstructive pulmonary disease, advanced. 3. Stage IV lung cancer. 4. Previous history of pulmonary embolism and deep venous thrombosis. RECOMMENDATIONS: At this point in time, we will continue low dose Cardizem, and we will continue to follow him and monitor him. Thank you again for the opportunity to participate in his evaluation. cc: Yusuf Wells MD
[2016-12-22] MEDS: VANCOMYCIN 1,400 MG in NS 250 ML IV SCH (15:17)
[2016-12-22] MEDS: NORCO-5 PO PRN (22:52)
[2016-12-22] MEDS: PROTONIX IV SCH (22:52)
[2016-12-22] MEDS: SODIUM CHLORIDE 0.9% INJ SCH (22:52)
[2016-12-23] MEDS: NS 1,000 ML IV SCH ×4 (01:13→23:22)
[2016-12-23] MEDS: ZOSYN 3.375 GM/NS 3.375 GM/50 ML IVPB IV SCH (02:37)
--- NOTE | 2016-12-23 08:39 | EKG Report ---
Test Performed on : 12/21/2016 08:06:42 AM Test Reason : afib/aflutter Blood Pressure : / mmHG Vent. Rate : 071 BPM Atrial Rate : 071 BPM P-R Int : 120 ms QRS Dur : 076 ms QT Int : 390 ms P-R-T Axes : 073 062 083 degrees QTc Int : 423 ms Sinus rhythm. with premature atrial complexes. Nonspecific ST and T wave abnormality Abnormal ECG When compared with ECG of 20-DEC-2016 13:48, (Unconfirmed) Sinus rhythm. has replaced Atrial flutter. Vent. rate has decreased BY 88 BPM QRS duration has decreased ST no longer depressed in Inferior leads ST less depressed in Anterior leads Nonspecific T wave abnormality no longer evident in Inferior leads Confirmed by Jas BLAS, Luis Das ([id number]) on 12/24/2016 12:42:15 PM
[2016-12-23] MEDS: XARELTO PO SCH (09:09)
[2016-12-23] MEDS: CARDIZEM CD PO SCH (09:09)
[2016-12-23] MEDS: CARDIZEM 100 MG/NS 100 MG/100 ML IVPB IV SCH ×2 (09:38→13:16)
--- NOTE | 2016-12-23 10:34 | PROGRESS NOTE ---
DATE: 12/23/2016 SUBJECTIVE: He is awake and alert. His stools are a little loose today. He has remained afebrile. Seems stronger. Appears to be in sinus rhythm at the present time. He is off the Cardizem drip. OBJECTIVE: Vital signs: Temperature 97.9, pulse 77, respirations 22, blood pressure 135/69. The pupils are equal, CVP less than 6 cm. Lungs: Clear in all lung moreno. Cardiovascular: Exam regular rhythm and rate without murmur or S3. Urine output was almost 5 L. LAB REVIEW: From yesterday, white count come down at 13,350, hematocrit 24, platelet count of 248,000. Chemistries looked good. Creatinine 0.6. Albumin is 2.4. Chest x-ray from yesterday, questionable small left basilar infiltrate. ASSESSMENT AND PLAN: 1. Patient with paroxysmal atrial tachycardia and possible atrial flutter. Appears to be in sinus rhythm. Stable hemodynamically. 2. Chronic obstructive pulmonary disease, which is advanced. 3. Stage IV lung cancer. 4. History of pulmonary embolism and deep venous thrombosis in the past. 5. I think we can stop antibiotics. He has been afebrile. Radiographically improved. Gas and air exchange is improved. EKG reviewed from the and pretty unremarkable, sinus rhythm. Plan to move him to the floor. Review of his orders. I do not see any change at this point, except I will stop his antibiotics, vancomycin and piperacillin. cc: Fawad Anderson MD
--- NOTE | 2016-12-23 12:13 | EKG Report ---
Test Performed on : 12/20/2016 1:48:51 PM Test Reason : TACHYCARDIA Blood Pressure : / mmHG Vent. Rate : 159 BPM Atrial Rate : 318 BPM P-R Int : 000 ms QRS Dur : 118 ms QT Int : 288 ms P-R-T Axes : -84 003 -47 degrees QTc Int : 468 ms Atrial flutter. with 2:1 AV conduction. Nonspecific intraventricular conduction delay Nonspecific ST abnormality Abnormal ECG When compared with ECG of 19-DEC-2016 21:08, Atrial flutter. has replaced Sinus rhythm. QRS duration has increased ST now depressed in Inferior leads ST now depressed in Anterior leads Confirmed by Anne Marie BLAS, Blake Das ([id number]) on 12/23/2016 7:56:58 PM
--- NOTE | 2016-12-23 13:09 | EKG Report ---
Test Performed on : 12/22/2016 09:38:22 AM Test Reason : ICU. Not ordered in [place] Blood Pressure : / mmHG Vent. Rate : 128 BPM Atrial Rate : 359 BPM P-R Int : 000 ms QRS Dur : 074 ms QT Int : 300 ms P-R-T Axes : 000 060 076 degrees QTc Int : 438 ms Atrial flutter. with variable AV block. with premature ventricular or aberrantly conducted complexes . Low voltage QRS Nonspecific ST and T wave abnormality Abnormal ECG When compared with ECG of 21-DEC-2016 08:06, (Unconfirmed) Atrial flutter. has replaced Sinus rhythm. Vent. rate has increased BY [address] more depressed in Anterior leads Nonspecific T wave abnormality now evident in Inferior leads Nonspecific T wave abnormality, worse in Lateral leads Confirmed by Jas BLAS, Luis Das ([id number]) on 12/24/2016 12:46:04 PM
[2016-12-23] MEDS: DUONEB (A & A) INH PRN (16:32)
[2016-12-23] MEDS: NORCO-5 PO PRN (21:30)
[2016-12-23] MEDS: PROTONIX IV SCH (23:22)
[2016-12-23] MEDS: SODIUM CHLORIDE 0.9% INJ SCH (23:22)
[2016-12-24] MEDS: NS 1,000 ML IV SCH (00:42)
[2016-12-24] MEDS: CARDIZEM 100 MG/NS 100 MG/100 ML IVPB IV SCH (00:42)
[2016-12-24 02:13] LABS: AGAP 13; BUN 6 mg/dL (8-22); CALCIUM 7.4 mg/dL (8.8-10.2); CHLORIDE 105 mmol/L (98-107); COSMO 278; POTASSIUM 2.8 mmol/L (3.5-5.1); SODIUM 140 mmol/L (136-145); TCO2 22 mmol/L (25-35)
[2016-12-24] MEDS: DUONEB (A & A) INH PRN ×3 (08:09→16:21)
[2016-12-24] MEDS: CARDIZEM CD PO SCH (08:28)
[2016-12-24] MEDS: XARELTO PO SCH (08:28)
[2016-12-24] MEDS: POTASSIUM CHLORIDE 20% LIQUID PO SCH (08:46)
--- NOTE | 2016-12-24 09:09 | PROGRESS NOTE ---
DATE: 12/24/2016 SUBJECTIVE: Mr. Funes says he feels great. He still has O2 per nasal cannula. He is eating well. He is not try to get him out of bed and walk him yet. Breathing is comfortable. Remains afebrile. PHYSICAL EXAMINATION: Vital Signs: Temperature 97.7 degrees, pulse 74, respirations 17, blood pressure 149/55. CVP less than 6 cm. Lungs: Clear in all lung moreno. Cardiovascular Examination: Regular rhythm and rate without murmur or S3. Abdomen: Soft. Skin: Warm and dry. Is and Os: Urine output was over 3 L. LAB: Reviewed from the . Chemistries from this morning, sodium 140, potassium 2.8, chloride 105, bicarb 22, BUN 6, creatinine 0.3, magnesium was 1.8. We will supplement some potassium today. ASSESSMENT AND PLAN: 1. Patient with paroxysmal atrial tachycardia and possible atrial flutter. Appears to be in sinus rhythm now and stable. 2. Chronic obstructive pulmonary disease which is advanced. 3. Stage IV lung cancer. 4. History of pulmonary embolism and deep venous thrombosis in the past. 5. Recently treated him for pneumonia. We need to see if we can wean him off the oxygen or if he needs home oxygen. I need to get him out of bed and see how he does with the therapy. 6. Review of his medication. He is on Xarelto 20 mg a day, Protonix 40 mg intravenous every 24 hours, hydrocodone 5 mg every 4 hours as needed. He is getting Cardizem CD 120 mg a day. I will supplement some potassium. He already has physical therapy. We will make sure we get physical therapy involved. I think that already got canceled. cc: Fawad Anderson MD
[2016-12-24] MEDS ORDERED: POTASSIUM CHLORIDE 20% LIQUID PO ONE (13:00)
[2016-12-24] MEDS: PROTONIX IV SCH (22:52)
[2016-12-25] MEDS: POTASSIUM CHLORIDE 20% LIQUID PO SCH (08:13)
[2016-12-25] MEDS: XARELTO PO SCH (08:13)
[2016-12-25] MEDS ORDERED: CARDIZEM CD PO SCH (09:00)
--- NOTE | 2016-12-25 09:03 | PROGRESS NOTE ---
DATE: 12/25/2016 SUBJECTIVE: He is awake and alert. He feels good. He has not done much as far as getting out of bed and walking. His breathing is comfortable. OBJECTIVE: Vital signs: He remains afebrile, temp 98.6 degrees, pulse 88, respirations 18, blood pressure 135/67. HEENT: Pupils are equal, round. Lungs: Clear in all lung mroeno. Cardiovascular: Regular rhythm and rate without murmur or S3. Abdomen: Soft. Skin: Warm and dry. Intake and output: Urine output 940 mL. LAB: White count, this is from the , 13,350, hematocrit was 24, platelet count of 248,000. Chemistries looked good. We did supplement some potassium yesterday. Will repeat that today. Magnesium will need to be repeated too. ASSESSMENT AND PLAN: 1. Paroxysmal atrial tachycardia and flutter. Appears to be in stable rhythm, rate controlled, sinus rhythm. 2. Chronic obstructive pulmonary disease. 3. Stage IV lung cancer. 4. Pulmonary embolism and a history of pulmonary embolism and deep vein thrombosis in the past. He is currently on Xarelto 20 mg a day. He is on Cardizem CD 180 mg increase yesterday. Nutrition appears good. Good p.o. intake. Need to work on his strength. Continue physical therapy. Will check lab again this morning and tomorrow morning. REVIEW OF HIS ORDERS: He is getting potassium 40 mEq daily. cc: Fawad Anderson MD
[2016-12-25 09:59] LABS: AGAP 12; BUN 6 mg/dL (8-22); CALCIUM 7.8 mg/dL (8.8-10.2); CHLORIDE 105 mmol/L (98-107); COSMO 277; POTASSIUM 3.7 mmol/L (3.5-5.1); SODIUM 140 mmol/L (136-145); TCO2 23 mmol/L (25-35)
--- NOTE | 2016-12-25 10:50 | EKG Report ---
Test Performed on : 12/25/2016 10:34:14 AM Test Reason : change in rhythm Blood Pressure : / mmHG Vent. Rate : 121 BPM Atrial Rate : 322 BPM P-R Int : 000 ms QRS Dur : 068 ms QT Int : 328 ms P-R-T Axes : 000 052 008 degrees QTc Int : 465 ms Atrial flutter. with variable AV block. with premature ventricular or aberrantly conducted complexes . Low voltage QRS Nonspecific ST and T wave abnormality Abnormal ECG When compared with ECG of 22-DEC-2016 09:38, Nonspecific T wave abnormality, improved in Inferior leads Nonspecific T wave abnormality now evident in Anterior leads Confirmed by Anne Marie BLAS, Blake Das ([id number]) on 12/26/2016 12:08:18 PM
[2016-12-25] MEDS: LANOXIN IV SCH ×2 (11:13→13:03)
[2016-12-25 12:47] LABS: MANUAL DIFF NEEDED? NO
[2016-12-25 12:56] LABS: BASO% 0.2 % (0.0-0.8); EOS# 0.12 X1000 (0.0-0.7); HEMATOCRIT 26.5 % (42.0-52.0); HEMOGLOBIN 8.4 g/dL (14.0-18.0); IMM GRAN# 0.21 X1000 (0.0-0.04); IMM GRAN% 1.8 % (0.0-0.5); LYMPH# 1.27 X1000 (1.2-3.4); LYMPH% 10.7 % (20.5-51.1); MCH 29.9 PG (27-31); MCHC 31.7 g/dL (33-37); MCV 94.3 FL (81-99); MONO# 0.86 X1000 (0.11-0.59); MONO% 7.3 % (1.7-9.3); MPV 8.8 FL (7.4-10.4); PLT 289 X1000 (130-400); RBC 2.81 XMIL (4.7-6.1)
--- NOTE | 2016-12-25 15:53 | PALLIATIVE CARE CONSULTATION ---
DATE: 12/25/2016 REQUESTING PHYSICIAN: Dr. Anderson. REASON FOR CONSULTATION: Goals of care. HISTORY OF PRESENT ILLNESS: This is a 76-year-old male with a past medical history of stage IV non-small cell lung cancer, COPD, history of pulmonary embolism and DVT, and nicotine dependence. He was most recently admitted on 12/19/2016 after presenting to the ED with complaints of increased weakness and dizziness. While in the ED EKG revealed atrial flutter which ultimately required cardioversion. He was admitted to the ICU and has since transferred out to the CICU. Currently he is lying in the hospital bed. He denies pain, shortness of breath, anxiety, and depression. His daughter is at the bedside and states that over the past month he has had an overall decline. He requires assistance with transfers and ambulation. He is sleeping the majority of the day. His appetite has decreased and he is only eating supper. He has had a 10 pound weight loss within the last 4 weeks. In regards to his stage IV [id number] lung cancer, he is being followed by Dr. Agee and receives Opdivo twice monthly. The daughter states that approximately 6 weeks ago Mr. Funes was able to function independently and was able to drive. The palliative care team has been consulted to assist with goals of care. REVIEW OF SYSTEMS: Twelve point review of system has been conducted and otherwise negative except those mentioned in the HPI. PAST MEDICAL HISTORY: See HPI. PAST SURGICAL HISTORY: Left knee surgery. SOCIAL HISTORY: Prior to this admission he lived at home with his daughter. He is . He has 2 adult children. It is reported that he quit smoking approximately 2 weeks ago. He has occasional alcohol use. Drug use has been denied. FAMILY HISTORY: Positive for diabetes mellitus. PHYSICAL EXAMINATION: General: This is a 76-year-old male who does not appear to be in any acute distress. HEENT: Atraumatic, normocephalic. Temporal wasting noted. Cardiovascular: Regular rate and rhythm. Pulmonary: Lung sounds are clear. Abdomen: Soft. Extremities: Pulses are palpable. Pitting edema noted to bilateral lower extremities. IMPRESSION: This is a 76-year-old male with a past medical history as listed above in the HPI. I met with the patient and daughter and discussed goals of care. We discussed advanced directive and power of contract attorney. Patient does not have either document. He has requests to be a full code. I feel like this patient would be appropriate for outpatient palliative care. It appears that his PPS as at this time is 40%. The palliative care team will continue to follow. Dictated by EMIL Melo for Nahum Flowers MD cc: EMIL Melo MD
[2016-12-25] MEDS: DUONEB (A & A) INH PRN ×2 (20:39→23:55)
[2016-12-25] MEDS: PROTONIX IV SCH (23:03)
[2016-12-26] MEDS: CARDIZEM 100 MG/NS 100 MG/100 ML IVPB IV SCH ×2 (01:33→15:21)
--- NOTE | 2016-12-26 06:25 | EKG Report ---
Test Performed on : 12/26/2016 00:36:25 AM Test Reason : Tachycardia Blood Pressure : / mmHG Vent. Rate : 124 BPM Atrial Rate : 197 BPM P-R Int : 000 ms QRS Dur : 068 ms QT Int : 304 ms P-R-T Axes : 000 044 195 degrees QTc Int : 436 ms Atrial fibrillation. with rapid ventricular response. Low voltage QRS Nonspecific ST and T wave abnormality Abnormal ECG When compared with ECG of 25-DEC-2016 10:34, (Unconfirmed) Atrial fibrillation. has replaced Atrial flutter. Confirmed by Blake Kenney MD ([id number]) on 12/26/2016 12:10:01 PM
[2016-12-26 06:30] LABS: AGAP 10; BUN 10 mg/dL (8-22); CALCIUM 7.8 mg/dL (8.8-10.2); CHLORIDE 107 mmol/L (98-107); COSMO 283; MAGNESIUM 1.6 mg/dL (1.5-2.7); POTASSIUM 3.6 mmol/L (3.5-5.1); SODIUM 142 mmol/L (136-145); TCO2 25 mmol/L (25-35)
--- NOTE | 2016-12-26 06:42 | PROGRESS NOTE ---
DATE: 12/26/2016 SUBJECTIVE: He had trouble with physical therapy. He sat up and he felt a little lightheaded and he is still converting back and forth from sinus rhythm to atrial fibrillation. I gave him 2 doses of digoxin and put him on digoxin yesterday. Also he went up on his Cardizem. He slept well last night and feels comfortable, breathing comfortably. OBJECTIVE: Temperature 97.8 degrees, pulse 66, respirations 18, and blood pressure 119/49.HEENT: Pupils are equal and round. CVP less than 6 cm. Lungs: Clear in all lung moreno. Cardiovascular: Regular rhythm and rate without murmur or S3. Abdomen: Soft. Skin: Warm and dry. Weight 141 pounds. urine output was 1430 mL. LABORATORY: White count 84742, hematocrit 26, and platelet count 289,000. Chemistries show a sodium 140, potassium 3.7, chloride 105, bicarb 23, BUN 6 and creatinine 0.4. ASSESSMENT AND PLAN: 1. Still converting back and forth from atrial fib to sinus rhythm. He was put on digoxin. His blood pressures look good ranging from 113-149/49-58. We will continue his physical therapy to continue efforts to try and get him stronger. 2. COPD on home oxygen. Suspect he will need oxygen at home. 3. Stage IV lung cancer. 4. History of pulmonary embolism. DVT in the past. 5. General weakness and deconditioning. Work on his strength. Possibly he could go home tomorrow depending on how he does. 6. Review of his labs, we are supplementing potassium and we will check magnesium and potassium again tomorrow. I think we are ought to check another chest x-ray as well tomorrow. We had treated him for a left basilar infiltrate. Review of his orders. He is on Xarelto 20 mg a day. Potassium chloride 40 mEq a day. Protonix 40 mg IV q.24 hours. We will change that to p.o. He is back on a Cardizem drip as well. I believe we gave him some dig but may need to put him on dig once a day. cc: Fawad Anderson MD
[2016-12-26] MEDS: CARDIZEM CD PO SCH (08:40)
[2016-12-26] MEDS: XARELTO PO SCH (08:40)
[2016-12-26] MEDS: LANOXIN PO SCH (08:40)
[2016-12-26] MEDS: POTASSIUM CHLORIDE 20% LIQUID PO SCH (08:40)
--- NOTE | 2016-12-26 15:13 | Diag Imaging Result Document ---
PROCEDURE NAME: US PELVIC MALE (COMPLETE) - 12/26/2016 SOFT TISSUE ULTRASOUND OF THE LEFT INGUINAL REGION: COMPARISON: None available. FINDINGS: There are bilateral inguinal hernias. Peristalsis is seen in the hernial sac indicating herniated bowel. The right hernia measures up to 4.8 x 5.2 x 1.9 cm. The left hernia measures up to 5.3 x 3.7 x 1.6 cm. These hernias were also seen on the previous PET scan dated 01/03/2016. IMPRESSION: Bilateral bowel containing inguinal hernias as described.
--- NOTE | 2016-12-26 16:13 | EKG Report ---
Test Performed on : 12/26/2016 3:45:44 PM Test Reason : Change in rhythm. Blood Pressure : / mmHG Vent. Rate : 085 BPM Atrial Rate : 085 BPM P-R Int : 104 ms QRS Dur : 068 ms QT Int : 350 ms P-R-T Axes : 084 056 176 degrees QTc Int : 416 ms Sinus rhythm. with short MN with premature atrial complexes. with aberrant conduction. Low voltage QRS Nonspecific ST and T wave abnormality Abnormal ECG When compared with ECG of 26-DEC-2016 00:36, Sinus rhythm. has replaced Atrial fibrillation. Confirmed by Anne Marie BLAS, Blake Das ([id number]) on 12/27/2016 9:03:17 AM
[2016-12-26] MEDS: DUONEB (A & A) INH PRN (20:57)
[2016-12-26] MEDS: PROTONIX IV SCH (23:15)
--- NOTE | 2016-12-27 06:19 | Diag Imaging Result Document ---
PROCEDURE NAME: CHEST-PORTABLE - 12/27/2016 PORTABLE CHEST: COMPARISON: 12/22/2016. FINDINGS: The lungs are hyperexpanded. The heart is not enlarged. The vessels are small. Overall mild decrease in the markings in the left base. IMPRESSION: Overall interval improvement compared to the prior exam.
[2016-12-27] MEDS: POTASSIUM CHLORIDE 20% LIQUID PO SCH ×2 (07:53→08:13)
[2016-12-27] MEDS: LANOXIN PO SCH ×2 (07:54→08:13)
[2016-12-27] MEDS: CARDIZEM CD PO SCH ×2 (07:54→08:13)
[2016-12-27] MEDS: XARELTO PO SCH (07:54)
[2016-12-27 09:21] LABS: MANUAL DIFF NEEDED? NO
[2016-12-27 09:26] LABS: BASO% 0.2 % (0.0-0.8); EOS# 0.12 X1000 (0.0-0.7); EOS% 1.2 % (0.0-10.0); HEMATOCRIT 27.3 % (42.0-52.0); HEMOGLOBIN 8.6 g/dL (14.0-18.0); IMM GRAN# 0.22 X1000 (0.0-0.04); IMM GRAN% 2.2 % (0.0-0.5); LYMPH# 1.36 X1000 (1.2-3.4); LYMPH% 13.7 % (20.5-51.1); MCH 30.1 PG (27-31); MCHC 31.5 g/dL (33-37); MCV 95.5 FL (81-99); MONO# 0.77 X1000 (0.11-0.59); MONO% 7.8 % (1.7-9.3); MPV 9.4 FL (7.4-10.4); NEUT% 74.9 % (42.2-75.2); PLT 340 X1000 (130-400); RBC 2.86 XMIL (4.7-6.1)
[2016-12-27] MEDS: DUONEB (A & A) INH PRN ×3 (09:29→23:06)
[2016-12-27 09:49] LABS: AGAP 11; BUN 13 mg/dL (8-22); CALCIUM 7.9 mg/dL (8.8-10.2); CHLORIDE 106 mmol/L (98-107); COSMO 283; POTASSIUM 4.1 mmol/L (3.5-5.1); SODIUM 141 mmol/L (136-145); TCO2 24 mmol/L (25-35)
--- NOTE | 2016-12-27 10:08 | Diag Imaging Result Document ---
PROCEDURE NAME: CHEST-PORTABLE - 12/27/2016 PORTABLE CHEST: COMPARISON: 12/27/2016. FINDINGS: The lungs are well expanded. There is an infiltrate in the right base. The heart is not enlarged. The vessels are not distended. No pleural effusions identified. IMPRESSION: 1. Right basilar infiltrate. 2. Emphysema.
[2016-12-27 10:36] LABS: RETIC% 7.61 % (0.8-2.1)
[2016-12-27 11:10] LABS: IRON SATURATION 20 %; TIBC 153 ug/dL; TOTAL IRON 30 ug/dL (53-167); UNBOUND IRON 123 ug/dL (112-346)
[2016-12-27 11:19] LABS: VITAMIN D 25 HYDROXY 7.7 NG/DL
--- NOTE | 2016-12-27 13:49 | PROGRESS NOTE ---
DATE: 12/27/2016 SUBJECTIVE: This patient stated that he is feeling better, but he has been having trouble with physical activity. Physical therapy tried to sit this patient up at the edge of the bed and he was dizzy. He did not do any physical activity today. This patient was placed on digoxin. Apparently he is weaned back and forth from atrial fibrillation to sinus rhythm. At this moment is sinus rhythm. OBJECTIVE: Vital Signs: Temperature 97.7 degrees, pulse 75, respiratory rate 20, blood pressure 123/48, oxygen saturation 93 on 3 L of nasal cannula. HEENT: Head normocephalic. No trauma. PERRLA. Neck: Supple. No JVD. Lungs: Clear to auscultation. No wheezing. No rales. Cardiovascular: RRR. No murmurs. Abdomen: Soft. Nontender, nondistended. No hepatosplenomegaly. Extremities: Trace lower extremity edema. No clubbing. No cyanosis. Neurological examination: The patient is alert and oriented x3. No focal deficits. LABORATORY: WBC 9.9, hemoglobin 8.6, hematocrit 27.3, platelets 340. Sodium 141, potassium 4.1, chloride 106, bicarbonate 24, BUN 13, creatinine 0.4, glucose 122, calcium 7.9. ASSESSMENT AND PLAN: 1. Sinus rhythm with episodes of atrial fibrillation. This patient was put on digoxin. Blood pressures are controlled. We will continue with the same treatment in physical therapy, he has been getting dizzy with physical activity even when he sits on the bed. 2. Chronic obstructive pulmonary disease on home oxygen. We will continue with the same management. 3. Stage IV lung cancer, aware. I do need to talk to the family to see what is the next step for this patient. 4. History of pulmonary embolism and deep vein thrombosis in the past. Aware. 5. General weakness having physical deconditioning and dizziness. Physical therapy is on board. Probably this patient will be discharged to a rehabilitation center. 6. Deep venous thrombosis prophylaxis. This patient is on Xarelto. 7. Gastrointestinal prophylaxis. This patient has been on pantoprazole. cc: Norman Padron MD
[2016-12-27] MEDS: CARDIZEM 100 MG/NS 100 MG/100 ML IVPB IV SCH (20:53)
[2016-12-27] MEDS: SODIUM CHLORIDE 0.9% INJ SCH (23:16)
[2016-12-27] MEDS: PROTONIX IV SCH (23:16)
[2016-12-28] MEDS: DUONEB (A & A) INH PRN ×5 (03:06→18:54)
[2016-12-28 05:22] LABS: BASO% 0.3 % (0.0-0.8); EOS# 0.15 X1000 (0.0-0.7); EOS% 1.5 % (0.0-10.0); HEMATOCRIT 25.6 % (42.0-52.0); HEMOGLOBIN 8.1 g/dL (14.0-18.0); IMM GRAN# 0.42 X1000 (0.0-0.04); IMM GRAN% 4.1 % (0.0-0.5); LYMPH% 13.6 % (20.5-51.1); MANUAL DIFF NEEDED? YES; MCH 30.1 PG (27-31); MCHC 31.6 g/dL (33-37); MCV 95.2 FL (81-99); MONO# 0.94 X1000 (0.11-0.59); MONO% 9.1 % (1.7-9.3); MPV 9.3 FL (7.4-10.4); NEUT% 71.4 % (42.2-75.2); PLT 324 X1000 (130-400); RBC 2.69 XMIL (4.7-6.1)
[2016-12-28 05:29] LABS: AGAP 12; BUN 13 mg/dL (8-22); CALCIUM 7.7 mg/dL (8.8-10.2); CHLORIDE 105 mmol/L (98-107); COSMO 280; POTASSIUM 3.8 mmol/L (3.5-5.1); SODIUM 140 mmol/L (136-145); TCO2 23 mmol/L (25-35)
[2016-12-28 05:30] LABS: EOS 6 % (1-10); LYMPHS 4 % (21-51)
[2016-12-28] MEDS ORDERED: PNEUMOVAX 23 IM ONE (06:06)
[2016-12-28] MEDS: XARELTO PO SCH (08:36)
[2016-12-28] MEDS: LANOXIN PO SCH (08:36)
[2016-12-28] MEDS: CARDIZEM CD PO SCH (08:36)
[2016-12-28] MEDS: POTASSIUM CHLORIDE 20% LIQUID PO SCH (08:37)
[2016-12-28] MEDS: XANAX PO SCH ×3 (10:31→21:00)
--- NOTE | 2016-12-28 11:58 | PROGRESS NOTE ---
DATE: 12/28/2016 SUBJECTIVE: This patient is resting in the bed. Apparently he had an episode of anxiety in the morning. I have ordered Xanax low dose for him twice a day. He is not complaining of shortness of breath. He is weak and every time he moves he feels dizzy. He has also pressure ulcers at the level of the sacral area and calcaneus area. I had a conversation with the daughter. I just wanted to clarify if she knows about his condition. This patient has stage IV lung cancer and his prognosis is not good. She aware about that. Also I talked to her about the DNR status and she told me that he is DNR level 1. She is going to bring a document where he states that he is DNR. I will talk to the patient and I will corroborate this information. OBJECTIVE: Vital Signs: Temperature 98 degrees, pulse 99, respiratory rate 19, blood pressure 133/42, oxygen saturation 98 on 2 L of nasal cannula. HEENT: Head normocephalic. No trauma. PERRLA. Neck: Supple. No JVD. No masses. Central trachea. Cardiovascular: RRR. Abdomen: Soft, nontender, nondistended. No hepatosplenomegaly. Chest: Bilateral coarse breath sounds. Decreased breath sounds at the bases. Extremities: Trace lower extremity edema. No clubbing. No cyanosis. He has a pressure ulcer at the level of the calcaneus area bilaterally. Neurological: The patient is alert and oriented x3. No focal neurological deficits. LABORATORY: WBC 10.3, hemoglobin 8.1, hematocrit 25.6, platelets 324,000. Sodium 140. Potassium 3.8, chloride 105, bicarbonate 23, BUN 13, creatinine 0.4, glucose 106, calcium 7.7. ASSESSMENT AND PLAN: 1. Sinus rhythm with episodes of atrial fibrillation. Cardiology department is following this patient. They are adjusting his medications today. At this moment this patient is in normal sinus rhythm. We will continue following the recommendation of cardiology department. 2. Chronic obstructive pulmonary disease, on home oxygen. Continue with the same management. 3. Stage IV lung cancer. Aware. Dr. Agee has been consulted. Family members are aware. I talked with the daughter about his code status and apparently he is DNR level 1. I will talk to him and I will change the full code to DNR. 4. History of pulmonary embolism and deep vein thrombosis in the past. Aware. 5. Generalized weakness. Also physical deconditioning and dizziness. Physical therapy is on board. We will continue with the same management. Probably we need to discharge this patient to a rehab center. 6. Deep vein thrombosis prophylaxis. This patient is on Xarelto. 7. Pressure ulcer at the level of the sacral area and calcaneus area bilaterally. Aware. 8. Gastrointestinal prophylaxis. Continue with Protonix. CRITICAL CARE TIME: 35 minutes. cc: Norman Padron MD
[2016-12-29] MEDS: PROTONIX IV SCH ×2 (00:41→23:16)
[2016-12-29 05:25] LABS: MANUAL DIFF NEEDED? NO
[2016-12-29 06:03] LABS: BASO% 0.1 % (0.0-0.8); EOS# 0.09 X1000 (0.0-0.7); EOS% 0.6 % (0.0-10.0); HEMOGLOBIN 8.1 g/dL (14.0-18.0); IMM GRAN# 0.12 X1000 (0.0-0.04); IMM GRAN% 0.8 % (0.0-0.5); LYMPH# 1.11 X1000 (1.2-3.4); LYMPH% 7.7 % (20.5-51.1); MCH 29.8 PG (27-31); MCHC 31.2 g/dL (33-37); MCV 95.6 FL (81-99); MONO% 6.2 % (1.7-9.3); MPV 9.4 FL (7.4-10.4); NEUT% 84.6 % (42.2-75.2); PLT 332 X1000 (130-400); RBC 2.72 XMIL (4.7-6.1)
[2016-12-29 06:06] LABS: AGAP 9; BUN 11 mg/dL (8-22); CALCIUM 7.9 mg/dL (8.8-10.2); CHLORIDE 105 mmol/L (98-107); COSMO 278; POTASSIUM 4.7 mmol/L (3.5-5.1); SODIUM 139 mmol/L (136-145); TCO2 25 mmol/L (25-35)
[2016-12-29] MEDS: DUONEB (A & A) INH PRN ×5 (07:54→23:04)
[2016-12-29] MEDS: CARDIZEM CD PO SCH (08:21)
[2016-12-29] MEDS: POTASSIUM CHLORIDE 20% LIQUID PO SCH (08:21)
[2016-12-29] MEDS: LANOXIN PO SCH (08:21)
[2016-12-29] MEDS: XARELTO PO SCH (08:21)
[2016-12-29] MEDS: XANAX PO SCH ×2 (08:21→20:34)
[2016-12-29] MEDS: ROCEPHIN 1 GM/NS 1 GM/50 ML IVPB IV SCH (08:22)
--- NOTE | 2016-12-29 09:49 | PROGRESS NOTE ---
DATE: 12/29/2016 SUBJECTIVE: The patient states that he is feeling better. I had a conversation with him today and he is not sure about his code status. I will talk to him and the family again today. Also pediatric social worker has been looking for placement for this patient but he states today that he wants to go home with home health and physical therapy. Hematology/oncology has been consulted because this patient has a stage IV lung cancer and he is concerned about not having more chemotherapy; pending recommendations for that. OBJECTIVE: Vital Signs: Temperature 98.1 degrees, pulse 118, respiratory rate 19, blood pressure 121/54, oxygen saturation 91 on 3 L of nasal cannula. HEENT: Head normocephalic. No trauma. PERRLA. Neck: Supple. No JVD. No masses. Central trachea. Cardiovascular: RRR. Tachycardic. Abdomen: Soft, nontender, nondistended. No hepatosplenomegaly. Chest: Bilateral coarse breath sounds with rales at the bases. No wheezing. Extremities: Trace lower extremity edema. No clubbing. No cyanosis. He has a pressure ulcer at the level of the calcaneus area bilaterally and the sacral ulcer as well. Neurological: The patient is alert and oriented x3. No focal neurological deficits. LABORATORY: WBC 14.4, hemoglobin 8.1, hematocrit 26, platelet 332,000. Sodium 139, potassium 147, chloride 105, bicarbonate 25, BUN 11, creatinine 0.4, glucose 119, calcium 7.9. ASSESSMENT AND PLAN: 1. Sinus rhythm with episodes of atrial fibrillation. Cardiology department is following this patient. They are adjusting his medications. At the moment of my evaluation he was tachycardic. We will continue to follow cardiology's recommendations. 2. Chronic obstructive pulmonary disease. The daughter told me that he is on home oxygen and this patient just denied this. Anyway, upon discharge I do believe that this patient should be on oxygen. 3. Stage IV lung cancer. Aware. Dr. Agee has been consulted; pending recommendations. 4. History of pulmonary embolism and deep vein thrombosis in the past. Aware. 5. Generalized weakness, secondary to physical deconditioning and dizziness. Patient is on physical therapy. We will continue with the same management. 6. Deep vein thrombosis prophylaxis. This patient is on Xarelto. 7. Pressure ulcer at the level of the sacral and calcaneus area bilaterally. Aware. 8. Gastrointestinal prophylaxis. Continue with Protonix. 9. Right basilar infiltrate. I noticed today that the WBC increased from 10 to 14 and given his past medical history and this increase of WBC, I will cover this patient with antibiotics. cc: Norman Padron MD
[2016-12-29] MEDS: ZITHROMAX 500 MG/NS 500 MG/250 ML IVPB IV SCH (09:57)
--- NOTE | 2016-12-29 12:26 | Diag Imaging Result Document ---
PROCEDURE NAME: CHEST-PORTABLE - 12/29/2016 COMPARISON: 12/27/2016. FINDINGS: There is a stable right basilar infiltrate. No new consolidations are identified. Cardiac silhouette is stable. IMPRESSION: Stable chest.
[2016-12-30 06:43] LABS: BASO% 0.1 % (0.0-0.8); EOS# 0.06 X1000 (0.0-0.7); EOS% 0.4 % (0.0-10.0); HEMATOCRIT 27.2 % (42.0-52.0); HEMOGLOBIN 8.5 g/dL (14.0-18.0); IMM GRAN# 0.11 X1000 (0.0-0.04); IMM GRAN% 0.7 % (0.0-0.5); LYMPH# 0.93 X1000 (1.2-3.4); LYMPH% 5.7 % (20.5-51.1); MANUAL DIFF NEEDED? YES; MCH 29.6 PG (27-31); MCHC 31.3 g/dL (33-37); MCV 94.8 FL (81-99); MONO# 1.13 X1000 (0.11-0.59); MONO% 6.9 % (1.7-9.3); MPV 9.4 FL (7.4-10.4); NEUT% 86.2 % (42.2-75.2); PLT 363 X1000 (130-400); RBC 2.87 XMIL (4.7-6.1)
[2016-12-30 06:55] LABS: AGAP 11; BUN 14 mg/dL (8-22); CHLORIDE 104 mmol/L (98-107); COSMO 279; POTASSIUM 3.6 mmol/L (3.5-5.1); SODIUM 139 mmol/L (136-145); TCO2 24 mmol/L (25-35)
[2016-12-30] MEDS: POTASSIUM CHLORIDE 20% LIQUID PO SCH (08:15)
[2016-12-30 08:21] LABS: BANDS 8 % (0-1); LYMPHS 8 % (21-51); MONO 2 % (1-9)
[2016-12-30] MEDS: XARELTO PO SCH (08:50)
[2016-12-30] MEDS: CARDIZEM CD PO SCH (08:50)
[2016-12-30] MEDS: LANOXIN PO SCH (08:51)
[2016-12-30] MEDS: ROCEPHIN 1 GM/NS 1 GM/50 ML IVPB IV SCH (08:51)
[2016-12-30] MEDS: XANAX PO SCH ×2 (08:51→21:36)
--- NOTE | 2016-12-30 09:27 | Diag Imaging Result Document ---
PROCEDURE NAME: CHEST-PORTABLE - 12/30/2016 PORTABLE CHEST X-RAY, 12/30/2016: COMPARISON: 12/29/2016. FINDINGS: Stable COPD changes. Stable small right basilar infiltrate. There is also some developing infiltrate in the left lung base. Heart size remains normal. IMPRESSION: 1. COPD. Worsening mild bilateral basilar infiltrates concerning for bronchopneumonia. 2. Stable pulmonary mass at the right paratracheal stripe.
[2016-12-30] MEDS ORDERED: LASIX IV ONE ×2 (09:34→18:52)
[2016-12-30] MEDS: ZITHROMAX 500 MG/NS 500 MG/250 ML IVPB IV SCH (09:57)
[2016-12-30] MEDS ORDERED: LASIX ONE (18:50)
[2016-12-30] MEDS: DUONEB (A & A) INH PRN ×2 (18:50→22:55)
[2016-12-30 21:09] LABS: URINE CULTURE NEEDED? NO; URINE MICRO REVIEW NEEDED? NO; URINE SOURCE CATH
[2016-12-30 21:21] LABS: BILIRUBIN URINE NEGATIVE (NEGATIVE); BLOOD URINE TRACE (NEGATIVE); COLOR YELLOW; GLUCOSE URINE NEGATIVE (NEGATIVE); LEUKOCYTES URINE NEGATIVE (NEGATIVE); NITRITE URINE NEGATIVE (NEGATIVE); PH URINE 5.5; PROTEIN URINE NEGATIVE (NEGATIVE); SP GRAVITY URINE 1.015; TURBIDITY URINE CLEAR (CLEAR); UROBILINOGEN URINE NORMAL (NORMAL)
[2016-12-30 21:22] LABS: UR EPITHELIAL CELLS <10 /HPF (<10); URINE BACTERIA NEGATIVE /HPF; URINE RBC <10 /HPF (<10); URINE WBC <10 /HPF (<10)
[2016-12-31] MEDS: SODIUM CHLORIDE 0.9% INJ SCH (00:09)
[2016-12-31] MEDS: PROTONIX IV SCH (00:09)
[2016-12-31 06:25] LABS: MANUAL DIFF NEEDED? NO
[2016-12-31 06:32] LABS: BASO% 0.1 % (0.0-0.8); EOS# 0.08 X1000 (0.0-0.7); EOS% 0.6 % (0.0-10.0); HEMATOCRIT 26.7 % (42.0-52.0); HEMOGLOBIN 8.4 g/dL (14.0-18.0); IMM GRAN% 0.7 % (0.0-0.5); LYMPH# 1.19 X1000 (1.2-3.4); LYMPH% 8.4 % (20.5-51.1); MCH 29.8 PG (27-31); MCHC 31.5 g/dL (33-37); MCV 94.7 FL (81-99); MONO# 1.04 X1000 (0.11-0.59); MONO% 7.4 % (1.7-9.3); MPV 9.1 FL (7.4-10.4); NEUT% 82.8 % (42.2-75.2); PLT 363 X1000 (130-400); RBC 2.82 XMIL (4.7-6.1)
[2016-12-31 06:47] LABS: AGAP 8; BUN 16 mg/dL (8-22); CALCIUM 8.2 mg/dL (8.8-10.2); CHLORIDE 103 mmol/L (98-107); COSMO 279; POTASSIUM 3.6 mmol/L (3.5-5.1); SODIUM 139 mmol/L (136-145); TCO2 28 mmol/L (25-35)
--- NOTE | 2016-12-31 08:12 | Diag Imaging Result Document ---
PROCEDURE NAME: CHEST-PORTABLE - 12/31/2016 SINGLE FRONTAL RADIOGRAPH OF THE CHEST: COMPARISON: 12/30/2016. FINDINGS: Mild opacities at the lung bases appear to have improved slightly. No new consolidations are identified. Cardiac silhouette is stable. IMPRESSION: Likely slight improvement of the already mild opacities at the lung bases.
[2016-12-31] MEDS ORDERED: LASIX IV SCH (08:30)
[2016-12-31] MEDS ORDERED: LASIX PO SCH (09:00)
[2016-12-31] MEDS ORDERED: LEVAQUIN PO SCH (09:00)
[2016-12-31] MEDS: POTASSIUM CHLORIDE 20% LIQUID PO SCH (09:01)
[2016-12-31] MEDS: XARELTO PO SCH (09:02)
[2016-12-31] MEDS: XANAX PO SCH (09:02)
[2016-12-31] MEDS: LANOXIN PO SCH (09:02)
[2016-12-31] MEDS: CARDIZEM CD PO SCH (09:02)
--- NOTE | 2016-12-31 09:06 | DISCHARGE SUMMARY ---
ADMISSION DATE: 12/19/2016 DISCHARGE DATE: 12/30/2016 CONSULTATIONS: 1. Dr. Basurto with cardiology. 2. Irma Ga with palliative care. PERTINENT PROCEDURES: 1. Echocardiogram showed an EF of 55%. No obvious wall motion abnormality. 2. Pelvis ultrasound showed bilateral bowel containing inguinal hernias. 3. Chest x-ray showed COPD, worsening mild bilateral basilar infiltrates concerning for bronchopneumonia. Stable pulmonary mass in the right paratracheal stripe. DISCHARGE DIAGNOSES: 1. Paroxysmal atrial fibrillation, followed by cardiology. Patient underwent medication adjustments as cardiology. 2. Chronic obstructive pulmonary disease. The patient will continue with home oxygen and current medications. 3. Stage IV lung cancer. Aware. Followed by Dr. Agee. He was evaluated by palliative care. The patient requests to be a full code. Dr. Turk had a long discussion with him and the daughter. He will go home with home health and physical therapy. He is aware of his diagnosis of stage IV lung cancer. He does want to go home and does not want any hospice care. 4. Pulmonary embolism and deep vein thrombosis in the past. Aware. 5. Generalized weakness secondary to physical deconditioning and dizziness. The patient worked with physical therapy. Will be discharged home with home health, as well as physical therapy. 6. Pressure ulcer of the level of the sacral an calcaneus area bilaterally. Aware. Continue with home health. 7. Right basilar infiltrate. The patient did have an increase in his white count. He will be sent home with p.o. antibiotics. HOSPITAL COURSE: Briefly, Mr. Funes is a 76-year-old male with past medical history of stage IV non-small cell lung cancer, COPD on home O2, nicotine dependence, DVT, as well as pulmonary embolism, on Xarelto. Patient presented to the ED with complaints of increased weakness and dizziness. While in the ED his EKG revealed that he was in atrial flutter that required cardioversion. Patient was admitted to the ICU and transferred to [facility]. Due to the patient's weakness physical therapy was consulted to work with the patient. Palliative care was also consulted to see the patient given his diagnosis of stage IV lung cancer. Daughter reported that over the past month the patient has had an overall decline. He requires assistance with transfer and ambulation. He sleeps the majority of the day. His appetite has decreased, as well as having a 10 pound weight loss in the last month. The patient was being treated by Dr. Agee, receiving Opdivo twice monthly. Mr. Funes's goals of care were to go home with his daughter with home health physical therapy and home O2. Again, he states he is aware that he has stage IV lung cancer and that he knows he is not going to get any better. He did want to go home but did not want to be followed by hospice. This was discussed with the patient and the daughter. Patient also on a chest x-ray did show some infiltrates. He was started on antibiotics. The patient is being discharged with [facility]. Rehab was discussed. However, he has refused rehab. VITAL SIGNS: At the time of his discharge, temperature is 98.1 degrees, heart rate 106, respirations 21, blood pressure 122/54, O2 is 93% on 4 L nasal cannula. DISCHARGE DIET: Regular. DISCHARGE MEDICATIONS: Per Dr. Turk: 1. Xanax 0.25 mg p.o. b.i.d. 2. Symbicort 160/4.5 mcg inhaler 2 puffs p.o. b.i.d. 3. Dexamethasone 2 mg p.o. b.i.d. 4. Digoxin 250 mg p.o. daily. 5. Cardizem CD 240 mg p.o. daily. 6. Marinol 2.5 mg p.o. at bedtime. 7. Lasix 20 mg p.o. daily. 8. [place] 5/325 one each p.o. q.4 hours p.r.n. 9. Levaquin 750 mg p.o. daily. 10. Potassium chloride 40 mEq p.o. daily. 11. Xarelto 50 mg p.o. b.i.d. 12. Restoril 30 mg p.o. at bedtime. 13. Effexor XR 150 mg p.o. at bedtime. FOLLOWUP: The patient is being discharged home with his daughter as well as [facility] and physical therapy, along with home O2. Patient did speak with palliative care. He was not wanting hospice, nor rehab, just to go home with his daughter. The patient can return to the ED for any worsening of symptoms. DISCHARGE TIME: 30 minutes. Dictated by EMIL Brown for Norman Padron MD cc: Norman Padron MD
[2016-12-31] MEDS ORDERED: OPDIVO IV ONE (09:30)
[2016-12-31] MEDS ORDERED: NS IV ONE (09:30)
[2016-12-31 11:43] VITALS: BP 145/73
--- NOTE | 2017-01-07 08:21 | CONSULTATION ---
DATE OF CONSULTATION: 12/20/2016 We appreciate this consult. CHIEF COMPLAINT: Weakness and dizziness. HISTORY OF PRESENT ILLNESS: Mr. Funes is a pleasant, 76-year-old, male, well known to Dr. Agee with a past medical history of stage IV non-small cell lung cancer. Currently on Opdivo. COPD, history of pulmonary embolism and DVT, and nicotine dependence. The patient presented to the emergency department secondary to profound weakness and dizziness and inability to carry out his activities of daily living. While in the emergency department, the patient was found to be in supraventricular tachycardia, which was cardioverted. The patient was admitted to ICU secondary to profound dyspnea and weakness. The patient's daughter accompanies the patient and reports that he has had a steady decline in the ability to function independently. We are consulted as the patient is known to us currently on chemotherapy. PAST MEDICAL HISTORY: 1. Non-small cell lung cancer, currently on Opdivo. 2. Hyperlipidemia. 3. Atrial fibrillation. 4. COPD. 5. Diabetes mellitus type 2. 6. Nicotine dependence. PAST SURGICAL HISTORY: Left knee surgery. SOCIAL HISTORY: The patient lives at home with his daughter. He quit smoking approximately 2 weeks prior to admission. He reports occasional alcohol use and denies any illicit drug use. FAMILY HISTORY: Significant for diabetes mellitus, and negative for any hematologic or oncologic problem. MEDICATIONS ON ADMISSION: 1. Dexamethasone. 2. Effexor XR. 3. Magic mouthwash. 4. Milk of magnesia. 5. Multivitamins. 6. Restoril. 7. Symbicort. 8. Temazepam. 9. Tramadol. 10. Xarelto. ALLERGIES: The patient has no known drug allergies. LABORATORY DATA: Hemoglobin 8.4, hematocrit 25.5, white blood cell count 16.10, platelets 252. INR is 1.46, ANC is 12.50. Sodium 144, potassium 4.4, chloride 110, CO2 is 22, BUN 33, creatinine 0.6, glucose is 78, bilirubin 1.54, alkaline phosphatase 50, AST is 13, ALT is 10. IMAGING STUDIES: Chest x-ray is stable. EKG reveals SVT. REVIEW OF SYSTEMS: Complete review of systems is negative except as mentioned in HPI. PHYSICAL EXAM: General: Mr. Funes is a pleasant, 76-year-old male, who appears thin and quite weak. Vital Signs: Temperature 97.8, blood pressure 147/69, heart rate 90, respirations 26, O2 saturation is 100% on 3 L nasal cannula O2. HEENT: Normocephalic, atraumatic. Mucous membranes are pale and dry. Sclerae is anicteric. Extraocular movements intact. Neck: Supple. Lungs: With clear breath sounds bilaterally. Chest expansion is equal bilaterally. CV: S1, S2 is heard without murmur, rub or gallop. Abdomen: Soft, nondistended, nontender. Bowel sounds are positive in all quadrants. No rebound or guarding noted. Extremities: Without clubbing, cyanosis, or edema. Dermatologic: No rashes, bruises or lesions. Neurologic: The patient is awake, alert, and oriented x3. He has no focal deficit at this time. ASSESSMENT AND PLAN: 1. Non-small cell lung cancer. Currently on Opdivo, with his last treatment being 12/02/2016. We will hold any further treatment until patient's acute illness passes. 2. Profound weakness and dizziness, which is much improved at time of examination. 3. Protein calorie malnutrition. We will continue Marinol and continue to encourage supplementation with Boost. 4. Supraventricular tachycardia status post cardioversion. The patient is now in sinus rhythm and cardiology is following. 5. Deconditioning. We will consult palliative care. Additionally, the patient is currently undergoing physical therapy. 6. We will follow along with you and make further recommendations pending outcomes. Dictated by EMIL Warner for Tigre Agee MD cc: EMIL Warner MD
== END 2016-12-31 15:15 | disposition home health service (06) ==
LOC: ED 16:14 → ICU 21:51 → SUATTDRO 21:51 → 3S 12-24 01:26 → 3N 12-30 18:26
PROVIDERS: ATTEND Internal Medicine

== ENCOUNTER 2017-01-06 11:36 | Inpatient (IN) ==
[2017-01-06] MEDS ORDERED: NS 1,000 ML IV ONE (11:50)
[2017-01-06 12:03] LABS: ALLEN TEST YES; BE 1.1 mmoll (-3.0-3.0); BLOOD TYPE ARTERIAL; DRAW SITE R RADIAL; METHB 1.9 % (0.0-1.5); O2(CT) 11.1 mL/dL (15.0-23.0); PCO2(98.6) 37 mmHg (35-45); SAMPLE BLOOD; SAO2 73.9 % (95.0-100.0); THB 11.2 g/dL (11.5-17.4); pH(98.6) 7.44 (7.35-7.45)
[2017-01-06 12:04] LABS: PO2(98.6) 39 mmHg (60-100)
[2017-01-06 12:05] LABS: MODALITY NRB
[2017-01-06 12:20] LABS: EOS# 0.01 X1000 (0.0-0.7); HEMATOCRIT 36.8 % (42.0-52.0); HEMOGLOBIN 11.5 g/dL (14.0-18.0); LYMPH# 2.15 X1000 (1.2-3.4); LYMPH% 7.7 % (20.5-51.1); MANUAL DIFF NEEDED? NO; MCH 29.3 PG (27-31); MCHC 31.3 g/dL (33-37); MCV 93.6 FL (81-99); MONO# 1.72 X1000 (0.11-0.59); MONO% 6.2 % (1.7-9.3); MPV 9.2 FL (7.4-10.4); NEUT% 86.1 % (42.2-75.2); PLT 526 X1000 (130-400); RBC 3.93 XMIL (4.7-6.1)
[2017-01-06] MEDS ORDERED: ZOSYN 3.375 GM/NS 3.375 GM/50 ML IVPB IV ONE (12:24)
[2017-01-06] MEDS ORDERED: VANCOMYCIN 1 GM/NS 1 GM/250 ML IVPB IV ONE (12:24)
[2017-01-06 12:26] LABS: INR 1.47; PROTIME 15.8 Seconds (9.2-11.7); PTT 28.3 Seconds (22.0-36.0)
--- NOTE | 2017-01-06 12:29 | Diag Imaging Result Document ---
PROCEDURE NAME: CHEST-PORTABLE - 01/06/2017 PORTABLE CHEST X-RAY: COMPARISON: 12/31/2016. FINDINGS: There is new significant deviation of the mediastinum towards the left. There is significant volume loss of the left lung with ill-defined increased density at the left hilum and base. The right lung is hyperexpanded more so than prior but, otherwise, essentially clear and normal. IMPRESSION: Significant atelectasis of the left lung concerning for airway obstruction such as mucus plugging.
[2017-01-06 12:34] LABS: AGAP 14; ALBUMIN 3.1 g/dL (3.5-5.0); ALKALINE PHOSPHATASE 72 U/L (32-122); AMYLASE 127 U/L (20-200); BUN 33 mg/dL (8-22); CALCIUM 8.9 mg/dL (8.8-10.2); CHLORIDE 95 mmol/L (98-107); CK PROFILE 21 U/L (24-204); COSMO 276; GOT 12 U/L (10-34); GPT 11 U/L (10-44); LIPASE 11 U/L (13-60); MAGNESIUM 2.2 mg/dL (1.5-2.7); POTASSIUM 4.9 mmol/L (3.5-5.1); SODIUM 133 mmol/L (136-145); TCO2 24 mmol/L (25-35); TOTAL BILIRUBIN 1.11 mg/dL (0.20-1.00); TOTAL PROTEIN 6.3 g/dL (6.3-8.3)
--- NOTE | 2017-01-06 12:39 | EKG Report ---
Test Performed on : 01/06/2017 11:39:43 AM Test Reason : UNRESPONSIVE Blood Pressure : / mmHG Vent. Rate : 087 BPM Atrial Rate : 087 BPM P-R Int : 130 ms QRS Dur : 074 ms QT Int : 352 ms P-R-T Axes : 081 047 011 degrees QTc Int : 423 ms Sinus rhythm. with premature supraventricular complexes. Low voltage QRS Nonspecific ST and T wave abnormality Abnormal ECG When compared with ECG of 06-JAN-2017 11:39, (Unconfirmed) No significant change was found Unconfirmed Result
[2017-01-06] MEDS ORDERED: MUCOMYST 20% INH ONE (13:12)
[2017-01-06] MEDS ORDERED: DUONEB (A & A) INH ONE (13:15)
[2017-01-06] MEDS ORDERED: DUONEB (A & A) ONE (13:19)
[2017-01-06] MEDS ORDERED: MUCOMYST 20% ONE (13:19)
--- NOTE | 2017-01-06 13:23 | PROVIDER DOCUMENTATION ---
This chart was entered by Jose Peterson Scribe, acting as scribe for Dulce Maria Rojas MD. HPI-Neurological Disorder - General Stated Complaint: UNRESPONSIVE, HX LUNG CANCER Time Seen by Provider: 01/06/17 11:36 Source: EMS Unable to obtain history due to:: altered Allergies/Adverse Reactions: Patient Allergies Allergy/AdvReac Type Severity Reaction Status Date / Time No Known Allergies Allergy Verified 01/06/17 12:00 Home Medications: Home Medication List Medication Instructions Recorded Confirmed Last Taken Type Budesonide/Formoterol Fumarate 2 puff PO BID 01/23/16 12/19/16 12/19/16 History [Symbicort 160-4.5 Mcg Inhaler] Dexamethasone 2 mg PO BID 12/19/16 12/19/16 12/19/16 History Dronabinol [Marinol] 2.5 mg PO QHS 12/19/16 12/19/16 12/18/16 History Temazepam [Restoril] 30 mg PO QHS 12/19/16 12/19/16 12/18/16 History Venlafaxine E.r. [Effexor Xr] 150 mg PO QHS 12/19/16 12/19/16 12/18/16 History Alprazolam [Xanax] 0.25 mg PO BID #60 tablet 12/30/16 Unknown Rx Digoxin [Lanoxin] 250 microgm PO DAILY #90 tablet 12/30/16 Unknown Rx Diltiazem C.d. [Cardizem Cd] 240 mg PO DAILY #90 capsule 12/30/16 Unknown Rx Furosemide [Lasix] 20 mg PO DAILY #30 tablet 12/30/16 Unknown Rx Hydrocodone/Acetaminophen [[place] 1 each PO Q4H PRN #30 tablet 12/30/16 Unknown Rx 5-325 Tablet] Levofloxacin [Levaquin] 750 mg PO DAILY #5 tablet 12/30/16 Unknown Rx Potassium Chloride 20% Liquid 40 meq PO DAILY #300 udc 12/30/16 Unknown Rx Rivaroxaban [Xarelto] 15 mg PO BID #180 tablet 12/30/16 Unknown Rx - History of Present Illness-Neuro Nature of Presenting Problem: patient is a 76 y/o M that presents to the Er via EMS for unresponsiveness and shortness of breath. Family reported that patient began to not talk last pm. Today they found him unresponsive. EMS/Fire arrived on scene and patient's o2 saturation was in the 40s. patient was not intubated but bagged. On arrival to Er patient's o2 is still low in the 70s but he follows commands but is not talking. He he Stage IV lung ca in which treatments were stopped months ago. Severity: reports: severe Onset/Duration: reports: gradual, last night Timing: reports: still present, constant Context: reports: found unresponsive by family, impaired speech. denies: fever Character of Altered Mental Status: reports: unresponsive Associated Symptoms: reports: short of breath. denies: fever/chills, vomiting Similar Symptoms Previously?: No Recently seen or treated by another doctor?: No Review of Systems - Adult - REVIEW OF SYSTEMS - ADULT ROS:: unobtainable per condition Constitutional: reports: see HPI Eyes: reports: see HPI Ears, Nose, Mouth & Throat: reports: see HPI Cardiovascular: reports: see HPI Respiratory: reports: see HPI Gastrointestinal: reports: see HPI Genitourinary: reports: see HPI Musculoskeletal: reports: see HPI Integumentary: reports: see HPI Neurological: reports: see HPI Psychiatric: reports: see HPI Endocrine: reports: see HPI Hematologic/Lymphatic: reports: see HPI Allergic/Immunologic: reports: see HPI All Other Systems: Reviewed and Negative Past History - Adult - PAST MEDICAL HISTORY-ADULT Review of Records: reports: Old Records Reviewed, Nursing Assessment Review, Medications Reviewed Cardiovascular: reports: A-Fib, CHF Respiratory: reports: cancer (stage IV Lung cancer) Obstetrical/Gynecological: reports: denies history Genitourinary: reports: denies history Musculoskeletal: reports: denies history Neurological: reports: denies history Endocrine/Immune: reports: denies history Other Conditions: reports: denies history - PRIOR SURGERIES/PROCEDURES Surgical/Procedure History: reports: reviewed, not pertinent - IMMUNIZATION STATUS Childhood Immunizations: See Nurse Assessment Flu Vaccine: See Nurse Assessment - FAMILY HISTORY Family History: reviewed, not pertinent - SOCIAL HISTORY Smoking: cigarettes, greater than 1 pack/day Living Situation: family Physical Exam- Neurological - Physical Exam-Neuro Exam Limited by: pt condition Initial Vital Signs Reviewed: Yes General Appearance: alert, moderate distress, severe distress, other (chronic ill appearing) Eye Exam: bilateral eye: normal inspection, PERRL HENMT: normocephalic/atraumatic, moist mucous membranes, normal ENT inspection Respiratory: respiratory distress (moderate to severe), decreased breath sounds . negative: rales, rhonchi, wheezing Cardiovascular: no gallop, no murmur, tachycardia Abdominal Exam: normal bowel sounds, non tender, soft Extremity: no pedal edema, pelvis stable balling head tender Exam: normal hearing, PERRL, abnormal speech (aphasic) Neurologic: aphasia Integumentary: warm/dry, ecchymosis (large area to left flank) - [place] Coma Scale Best Motor Response: (6) obeys commands Progress - PLAN OF CARE/RESULTS Progress/Plan/Lab Results: Vital Signs - 8 hr 01/06/17 11:44 01/06/17 13:07 Pulse Rate 91 H 113 H Respiratory Rate 30 H 32 H Blood Pressure 129/71 106/61 O2 Sat by Pulse Oximetry 71 L 92 L Laboratory Results - last 24 hr 01/06/17 01/06/17 01/06/17 11:33 11:45 11:45 WBC 27.89 H RBC 3.93 L Hgb 11.5 L Hct 36.8 L MCV 93.6 MCH 29.3 MCHC 31.3 L RDW Std Deviation 16.8 H Plt Count 526 H MPV 9.2 Neut % (Auto) 86.1 H Lymph % (Auto) 7.7 L [place] % (Auto) 6.2 Eos % (Auto) 0.0 Baso % (Auto) 0.0 Neut # (Auto) 24.00 H Lymph # (Auto) 2.15 [place] # (Auto) 1.72 H Eos # (Auto) 0.01 Baso # (Auto) 0.01 PT INR PTT (Actin FS) D-Dimer Specimen Type ARTERIAL Sample Site R RADIAL pH 7.44 pCO2 37 pO2 39 L* HCO3 25.2 Base Excess 1.1 Oxyhemoglobin 70.4 L* ABG O2 Sat (Calculated) 11.1 L ABG O2 Saturation 73.9 L ABG Carboxyhemoglobin 2.80 H ABG Methemoglobin 1.9 H [place] Test YES A-a O2 Difference 628.0 Total Hemoglobin 11.2 L Lactate 2.30 H Blood Gas Modality NRB FiO2 % 100.0 Sodium 133 L Potassium 4.9 Chloride 95 L Carbon Dioxide 24 L Anion Gap 14 BUN 33 H Creatinine 0.6 L Estimated GFR/1.73 m2 > 60 BUN/Creatinine Ratio 55 Glucose 139 H Calculated Osmolality 276 Calcium 8.9 Magnesium 2.2 Total Bilirubin 1.11 H AST 12 ALT 11 Alkaline Phosphatase 72 Creatine Kinase 21 L Troponin T [id number]-M-Rvsxxjoevuz Pept Total Protein 6.3 Albumin 3.1 L Globulin 3.2 Albumin/Globulin Ratio 1.0 Amylase 127 Lipase 11 L 01/06/17 01/06/17 01/06/17 11:45 11:45 11:45 WBC RBC Hgb Hct MCV MCH MCHC RDW Std Deviation Plt Count MPV Neut % (Auto) Lymph % (Auto) [place] % (Auto) Eos % (Auto) Baso % (Auto) Neut # (Auto) Lymph # (Auto) [place] # (Auto) Eos # (Auto) Baso # (Auto) PT 15.8 H INR 1.47 PTT (Actin FS) 28.3 D-Dimer 1.20 H Specimen Type Sample Site pH pCO2 pO2 HCO3 Base Excess Oxyhemoglobin ABG O2 Sat (Calculated) ABG O2 Saturation ABG Carboxyhemoglobin ABG Methemoglobin F[place]ad Test A-a O2 Difference Total Hemoglobin Lactate Blood Gas Modality FiO2 % Sodium Potassium Chloride Carbon Dioxide Anion Gap BUN Creatinine Estimated GFR/1.73 m2 BUN/Creatinine Ratio Glucose Calculated Osmolality Calcium Magnesium Total Bilirubin AST ALT Alkaline Phosphatase Creatine Kinase Troponin T Uvh-H-Wvobqeyjxzw Pept 687 H Total Protein Albumin Globulin Albumin/Globulin Ratio Amylase Lipase 01/06/17 11:45 WBC RBC Hgb Hct MCV MCH MCHC RDW Std Deviation Plt Count MPV Neut % (Auto) Lymph % (Auto) [place] % (Auto) Eos % (Auto) Baso % (Auto) Neut # (Auto) Lymph # (Auto) [place] # (Auto) Eos # (Auto) Baso # (Auto) PT INR PTT (Actin FS) D-Dimer Specimen Type Sample Site pH pCO2 pO2 HCO3 Base Excess Oxyhemoglobin ABG O2 Sat (Calculated) ABG O2 Saturation ABG Carboxyhemoglobin ABG Methemoglobin Fawad Test A-a O2 Difference Total Hemoglobin Lactate Blood Gas Modality FiO2 % Sodium Potassium Chloride Carbon Dioxide Anion Gap BUN Creatinine Estimated GFR/1.73 m2 BUN/Creatinine Ratio Glucose Calculated Osmolality Calcium Magnesium Total Bilirubin AST ALT Alkaline Phosphatase Creatine Kinase Troponin T 0.015 Fgx-L-Qwkhekinkyx Pept Total Protein Albumin Globulin Albumin/Globulin Ratio Amylase Lipase Orders Category Date Time Status Cardiac Monitoring DIRECTED Care 01/06/17 11:50 Active Celeste Cath Insertion ORDERED Care 01/06/17 12:25 Active Oxygen Therapy- ED Nursing DIRECTED Care 01/06/17 11:50 Active Saline Loc NOW Care 01/06/17 11:50 Active CHEST-PORTABLE [RAD] Stat Exams 01/06/17 11:49 Draft ABG [RESP] Routine Lab 01/06/17 11:33 Completed AMYLASE [CHEM] Stat Lab 01/06/17 11:45 Completed BLOOD CULTURE [BLDCUL] Stat Lab 01/06/17 11:50 Ordered CBC WITH ELECTRONIC DIFF [HEME] Stat Lab 01/06/17 11:45 Completed CK PROFILE [SP CHEM] Stat Lab 01/06/17 11:45 Completed COMPREHENSIVE METABOLIC PANEL [CHEM] Stat Lab 01/06/17 11:45 Completed D-DIMER [CHEM] Stat Lab 01/06/17 11:45 Completed LACTATE, PLASMA [CHEM] Stat Lab 01/06/17 13:00 Received LIPASE [CHEM] Stat Lab 01/06/17 11:45 Completed MAGNESIUM [CHEM] Stat Lab 01/06/17 11:45 Completed PRO B-NATRIURETIC PEPTIDE Stat Lab 01/06/17 11:45 Completed PROTIME WITH INR [COAG] Stat Lab 01/06/17 11:45 Completed PTT [COAG] Stat Lab 01/06/17 11:45 Completed TROPONIN T Stat Lab 01/06/17 11:45 Completed 0.9% Sodium Chloride Inj [Ns] 1,000 ml Med 01/06/17 11:50 Active IV 250 mls/hr Acetylcysteine 20% [Mucomyst 20%] Med 01/06/17 13:12 Discontinued 3 ml INH NOW ONE Acetylcysteine 20% [Mucomyst 20%] Med 01/06/17 13:19 Discontinued 4 ml .ROUTE .STK-MED ONE Albuterol 2.5MG/Ipratrop 0.5MG [Duoneb (A & A)] Med 01/06/17 13:19 Discontinued 3 ml .ROUTE .STK-MED ONE Albuterol 2.5MG/Ipratrop 0.5MG [Duoneb (A & A)] Med 01/06/17 13:15 Discontinued 3 ml INH NOW ONE Piperacil/Tazobact 3.375 gm/Ns [Zosyn 3.375 gm/Ns] Med 01/06/17 12:24 Discontinued 3.375 gm in 50 ml IV NOW Vancomycin 1 gm/Ns Med 01/06/17 12:24 Active 1 gm in 250 ml IV NOW Aerosol Treatments Routine Oth 01/06/17 13:15 Active Aerosol Treatments Stat Oth 01/06/17 13:15 Active BIPAP Stat Oth 01/06/17 11:53 Active EKG [EKG] Stat Ther 01/06/17 11:50 Draft 1145- spoke with family, patient is DNR, patient will be placed on BiPap due to abnormal Abgs Result Diagrams: 01/06/17 11:45 01/06/17 11:45 - EKG 1 Time of EKG reading by physician:: 11:39 EKG Read and Signed by:: Dulce Maria Rojas EKG Interpretation (*Must complete 3 of following elements*): Abnormal Rate: 87 Rhythm: Sinus rhythm with PVCS [place]: normal QRS: other (low voltage QRS) WI Interval: normal ST Wave: non-specific ST changes - XRAY 1 XRAY Study: Chest Impression: Abnormal XRAY Interpretation: see detail reports - CONSULTS/PCP/HOSPITALIST Notification Time Discussed: 13:22 Reason/Comments: Admit to Dr. Anderson Consult Disposition: Admit Departure - Departure Time of Disposition Decision: 13:22 DIAGNOSIS: Respiratory failure, Pneumonia Disposition: ADMITTED INPATIENT 09 Certified Medical Emergency: Emergent Condition: Critical - Critical Care Note This patient required my direct & personal management of CC.: No Total Time (mins): 40 Critical Care Statement: This patient required my direct personal management to treat or rule out processes, the absence of which, could potentiallly result in sudden, clinically significant life or limb threatening deterioration. This chart was documented by the indicated scribe, (Jose Peterson, Scribe) and accurately reflects the services I performed and decisions made by me, Dulce Maria Rojas MD, as attested by the provider's signature.
[2017-01-06] MEDS ORDERED: VANCOMYCIN IV PER PHARMACY MISC SCH (15:03)
[2017-01-06] MEDS ORDERED: DUONEB (A & A) INH PRN (15:03)
[2017-01-06] MEDS: DUONEB (A & A) INH SCH ×3 (16:12→22:45)
[2017-01-06] MEDS ORDERED: VANCOMYCIN 500 MG/NS 500 MG/100 ML IVPB IV ONE (17:00)
--- NOTE | 2017-01-06 17:08 | HISTORY AND PHYSICAL ---
This is a 76-year-old who presented to the emergency room. He was sent home last week from the hospital. Became progressively more short of breath and the family says he is not eating. Not really taking his medication. Increased weakness. This is a 76-year-old with past medical history of chronic obstructive pulmonary disease, stage IV non-small cell lung cancer, who was in the hospital last week on 12/19/2016 with similar symptoms, shortness of breath. He is weak and difficulty performing even simple task. Dr. Agee is following him. He had chemotherapy last week before he left. Previously received Opdivo. History of pulmonary embolism in the right lower extremity. Deep venous thrombosis approximately four months ago. Was on Xarelto twice a day. He has been coughing some. They denied fever or chills. PAST MEDICAL HISTORY: 1. Chronic obstructive pulmonary disease. 2. Non-small cell lung cancer, right upper lobe and left lower lobe. 3. The patient has a history of pulmonary embolism. 4. Right lower extremity deep venous thrombosis. PAST SURGICAL HISTORY: Left knee surgery. SOCIAL HISTORY: Patient smokes half pack cigarettes a day for 60 years. Apparently he quit couple weeks ago. Occasional alcohol. Drinks a beer now and then. FAMILY HISTORY: Positive for diabetes mellitus. ALLERGIES: Patient reports no known drug allergies. HOME MEDICATIONS: We will review here in a minute. REVIEW OF SYSTEMS: Feels like he has not had a bowel movement in 5 days. He is losing weight. Appetite is poor. In general he is weaker, obviously more short of breath. They have not noticed any focal neurologic changes. I noticed the electrocardiogram in the past that showed atrial flutter with 2:1 conduction. The x-ray of his chest left whiteout of left lung reported, suspected mucus plugging but also has significant tumor load on that left lung. PHYSICAL EXAMINATION: VITAL SIGNS: In emergency room, he has supplemental O2. Rate of breathing is greater than 40 breaths per minute and shallow respirations. I do not hear any air movement in the left lung. Pulse was 85, respirations as I stated 40 and above. Blood pressure 106/61. LUNGS: The right lung you can hear air sounds. Left really cannot. ABDOMEN: Soft. EXTREMITIES: Without edema. CARDIOVASCULAR: Appears to be regular rhythm and rate without murmur or S3. Patient on BiPAP at the present time. 100% FiO2. GENERAL APPEARANCE: Height 5 feet, 6 inches. Weight 130 lbs. LABORATORY DATA: White blood cells 27,890, hematocrit 36, platelet count 526,000. Sodium 133, potassium 4.9, chloride 95, bicarb 24, BUN 33, creatinine 0.6. Liver functions unremarkable. Pro- B-type natriuretic peptide 687. ProTime as 15.8. Blood gases pH was 7.44, pCO2 37, pO2 39. I suspect he had venous gases. Oxyhemoglobin O2 saturation 78%. Lactate was 2.3. FiO2 100%. Chest x-ray report significant atelectasis of left lung, concerning for airway obstruction such as mucous plugging. We also note he has tumor load on that side. Previous studies done: He had a chest CT done 12/02/2016 and there was lesions in the right upper and left lower lobes. ASSESSMENT AND PLAN: 1. He is a no code. They do not want intubated. Will continue BiPAP and try to improve his air exchange. Ask Pulmonary to help. We will put him on really broad-spectrum antibiotics to cover gram negative Pseudomonas and also on gram-positive. We will give him some guaifenesin and see if we can thin out the mucous secretions. I will given 1200 mg twice a day. We will given some breathing treatments of albuterol and Atrovent. I will put him on a steroid inhaler, probably fluticasone and see if we can maximize his air movement. I had a discussion with the family that there is a possibility that this will not improve. We will do all we can. He has significant tumor load. He has stage IV non-small cell lung cancer. We will see if he can get some assistance from pulmonary and but not sure how much improvement we are going to get. 2. History of chronic obstructive pulmonary disease, aware. Obvious exacerbation of chronic obstructive pulmonary disease. Long history of tobacco. 3. Stage IV non-small cell lung cancer. I noted that he had an echocardiogram done on 12/20 that showed a technically difficult study. Aortic valve with atherosclerosis, minimal aortic stenosis, mild tricuspid regurgitation, normal left ventricular ejection fraction. 4. He apparently has constipation and he is not eating. We will see if he will take some lactulose 30 mL twice a day. We will give him Milk of Magnesia 30 mL once a day p.r.n. CURRENT MEDICATION LIST: He is on Xanax 0.25 mg b.i.d. Obviously, we will hold that at this time. He is on Symbicort 160/4.5 b.i.d., dexamethasone 2 mg b.i.d., digoxin 250 minutes mcg daily, Cardizem CD 240 mg a day. He is on Marinol for appetite 2.5 mg at bedtime, Lasix 20 mg a day, [place] 5/325 one q.4 hours p.r.n., hydrocodone 5/325 q.4 hours p.r.n., Levaquin taking 750 mg p.o. daily, potassium chloride 20%, 40 mEq daily, Xarelto 15 mg p.o. b.i.d., Restoril 30 mg p.o. at bedtime, and Effexor ER 150 mg daily. cc: Fawad Anderson MD
[2017-01-06] MEDS: ZOSYN 3.375 GM/NS 3.375 GM/50 ML IVPB IV SCH ×2 (17:28→23:21)
[2017-01-06] MEDS: LEVAQUIN 750 MG/D5W 750 MG/150 ML IVPB IV SCH (17:37)
--- NOTE | 2017-01-06 20:53 | CONSULTATION ---
DATE OF CONSULTATION: 01/06/2017 PULMONARY CONSULTATION REQUESTING PHYSICIAN: Fawad Anderson MD. REASON FOR CONSULTATION: Respiratory failure. HISTORY OF PRESENT ILLNESS: Mr. Funes is a 76-year-old white male currently being treated for stage IV lung cancer by report. CT scan 12/02/2016 revealed a spiculated lesion in the right upper lobe which had decreased in size and a spiculated lesion in the right lower lobe which had also decreased in size. The patient was admitted to the hospital from 12/19/2016 to 12/30/2016 and was diagnosed with paroxysmal atrial fibrillation. He was successfully treated and discharged home. He became poorly responsive and was brought to the emergency room. Chest x-ray today reveals a new dense infiltrate with volume loss in the left lung which was not present a week ago. PAST MEDICAL HISTORY: 1. Stage IV lung cancer. 2. Severe COPD with chronic hypoxemic respiratory failure. 3. History of pulmonary embolism. 4. History of deep vein thrombosis. 5. Status post left knee surgery. SOCIAL HISTORY: Extensive tobacco history. Nonsmoker for the last 2 weeks. Occasional alcohol use. FAMILY HISTORY: Positive for diabetes. REVIEW OF SYSTEMS: Limited given his poor mental status. PHYSICAL EXAMINATION: General: Reveals a frail, chronically ill-appearing, white male, with marked decrease in muscle mass. He has generalized bruising most prominent on the arms. Vital Signs: BP 107/67, heart rate 77, respiration rate 26, oxygen saturation 74% on BiPAP. HEENT: Pupils are equal and reactive. Oropharynx evaluation is limited. Neck: Supple. Chest: Reveals diminished breath sounds throughout the left lung. Cardiac Examination: Regular rate. Normal S1, normal S2. Abdomen: Soft without hepatosplenomegaly. Extremities: Without edema. LABORATORIES: Arterial blood gas reveals a pH of 7.44, pCO2 of 37, PO2 of 39, on 100% non- rebreather. Chemistry: Sodium 133, potassium 4.9, chloride 95, bicarbonate 24, BUN 33, creatinine 0.6. White blood count 27.9000, hemoglobin 11.5, platelet count 526,000. IMPRESSION: A 76-year-old with stage IV lung cancer, cachexia, chronic hypoxemic respiratory failure, recent atrial fibrillation, who presented to the hospital with altered mental status, profound hypoxemia, dense infiltrate in the left lung. There was concern that this may represent bronchial obstruction but CT scan in [place] does not reveal a significant tumor on the left side to explain this process. With the profound hypoxemia, leukocytosis, and marked change in chest x-ray he most likely has a severe pneumonia. Given his age, chronic hypoxemic respiratory failure, and lung cancer, his prognosis is extremely poor. Family has elected to not intubate or for proceed with aggressive measures such as chest compressions or advanced cardiac life support. RECOMMENDATIONS: 1. Continue BiPAP as you are doing for comfort measures. 2. Continue antibiotics as you doing. 3. Agree with Do Not Resuscitate. 4. Additional comfort measures as needed. 5. Overall prognosis is poor. cc: Nahum Flowers MD
[2017-01-06] MEDS: PROTONIX IV SCH (21:20)
[2017-01-06] MEDS: ATIVAN IV PRN (21:20)
[2017-01-06] MEDS: SODIUM CHLORIDE 0.9% INJ SCH (21:20)
[2017-01-06] MEDS: LACTULOSE PO SCH (21:21)
[2017-01-06] MEDS: NS 1,000 ML IV SCH (23:21)
[2017-01-07] MEDS: ATIVAN IV PRN (01:24)
[2017-01-07] MEDS: DUONEB (A & A) INH SCH ×6 (03:22→23:03)
[2017-01-07] MEDS: ZOSYN 3.375 GM/NS 3.375 GM/50 ML IVPB IV SCH ×4 (05:19→23:42)
[2017-01-07 05:21] LABS: HEMATOCRIT 34.1 % (42.0-52.0); HEMOGLOBIN 10.8 g/dL (14.0-18.0); MCH 29.3 PG (27-31); MCHC 31.7 g/dL (33-37); MCV 92.7 FL (81-99); MPV 9.4 FL (7.4-10.4); RBC 3.68 XMIL (4.7-6.1)
[2017-01-07 06:09] LABS: AGAP 24; BUN 45 mg/dL (8-22); CALCIUM 8.7 mg/dL (8.8-10.2); CHLORIDE 100 mmol/L (98-107); COSMO 292; POTASSIUM 5.2 mmol/L (3.5-5.1); SODIUM 139 mmol/L (136-145); TCO2 15 mmol/L (25-35)
[2017-01-07] MEDS ORDERED: MORPHINE IV PRN (08:26)
[2017-01-07] MEDS: MORPHINE ONE ×2 (08:30→08:42)
[2017-01-07] MEDS: LACTULOSE PO SCH (09:02)
[2017-01-07] MEDS: NS 1,000 ML IV SCH ×3 (10:32→23:41)
[2017-01-07] MEDS: MORPHINE IV PRN ×2 (10:33→20:18)
--- NOTE | 2017-01-07 11:04 | PROGRESS NOTE ---
DATE: 01/07/2017 SUBJECTIVE: Still breathing 30-40 times a minute. Oxygenation is poor. Has not been very responsive through the night and this morning. He did open his eyes and look at me this morning. PHYSICAL EXAMINATION: Vital Signs: Temperature 96.1 degrees, pulse 70, respirations 32, blood pressure has been between 88-107/62-67. Lungs: On the left with scattered rhonchi. On the right, clear. Abdomen: Soft. Skin: Warm and dry. Is and Os: Urine output has been over 4 L. LAB: White count 30,000, hematocrit 34, platelet count 417,000. Chemistry: Sodium 139, potassium 5.2, chloride 100, BUN is 45, creatinine 1.1, calcium 8.7. ASSESSMENT AND PLAN: 1. A 76-year-old with stage IV lung cancer, cachexia, chronic hypoxemic respiratory failure, recent atrial fibrillation. Presented with altered mental status and hypoxemia, dense infiltrate in the left lung. Continue present management. May have a bronchial obstruction but CT scan in November does not reveal significant tumor in the left side to explain this process. 2. Leukocytosis. 3. Profound hypoxemia. 4. Family does not want to intubate. Continue to treat the pneumonia, is on BiPAP. Try to keep comfortable. Family is asking about hospice. We will give him comfort measures. He is on morphine. He is on vancomycin, Zosyn, and Levaquin, some triple antibiotic. He is on lactulose 30 mL twice a day. Apparently, he did not have a bowel movement. Continue present measures. Continue intravenous fluids. Note, creatinine bumped up from 0.6 to 1.1. cc: Fawad Anderson MD
--- NOTE | 2017-01-07 15:37 | PALLIATIVE CARE CONSULTATION ---
DATE: 01/07/2017 REQUESTING PHYSICIAN: Dr. Anderson. REASON FOR CONSULTATION: Goals of care. HISTORY OF PRESENT ILLNESS: This is a 76-year-old male with a past medical history of stage IV lung cancer, severe COPD with chronic hypoxic respiratory failure, pulmonary embolism and history of DVT. He was most recently admitted on 01/06/2017 after presenting to the emergency room with complaints of progressive weakness and shortness of breath. It is of note that Mr. Funes was recently discharged from this hospital on 12/30/2016. He went home with home health and the goal to continue treatment for his stage IV lung cancer. The daughter who is at the bedside states that she noticed a daily decline since his last discharge. Currently he is in the ICU. He is requiring BiPAP. He does not appear uncomfortable at this time. Daughter and son are at the bedside and request comfort measures only. The palliative care team has been consulted to assist with goals of care. REVIEW OF SYSTEMS: Unable to review. PAST MEDICAL HISTORY: See HPI. PAST SURGICAL HISTORY: Left knee surgery. SOCIAL HISTORY: Prior to this admission he lived with his daughter. He has an extensive tobacco history. There is reports of occasional alcohol use. Drug use has been denied. FAMILY HISTORY: Positive for diabetes. PHYSICAL EXAM: General: This is a chronically ill-appearing 76-year-old, male who is in the ICU requiring BiPAP. He does not appear to be in any acute distress. HEENT: Atraumatic, normocephalic. Neck: Supple. Cardiovascular: Regular rate and rhythm. Pulmonary: Lung sounds are diminished. Abdomen: Soft. Extremities: Pulses are palpable. IMPRESSION: This is a 76-year-old chronically ill-appearing male with a past medical history as listed above in the history of present illness. The daughter and son are at the bedside and have request comfort measures only. Mr. Funes is a do not resuscitate level 1. The daughter states that states that Mr. Funes feels has shown an overall decline over the last month but most recently the decline has been described as rapid. Approximately 8 weeks ago Mr. Funes was able to function independently and was able to drive. The daughter states that in the days prior to this admission he required assistance with all activities of daily living and was becoming progressively short of breath. The daughter and son agree that they do not want any further lab testing or diagnostic testing. They only want medications for comfort. It appears that Mr. Funes's palliative performance scale is 10%. He does not appear uncomfortable at this time. He is a do not resuscitate level 1. The palliative care team will continue to follow. Thank you for this consultation. Dictated by EMIL Melo for Nahum Flowers MD cc: EMIL Melo MD
[2017-01-07] MEDS: LEVAQUIN 750 MG/D5W 750 MG/150 ML IVPB IV SCH (16:33)
[2017-01-07] MEDS: PROTONIX IV SCH (20:11)
[2017-01-07] MEDS: SODIUM CHLORIDE 0.9% INJ SCH (20:11)
[2017-01-08] MEDS: LACTULOSE PO SCH ×4 (00:57→22:47)
[2017-01-08] MEDS: MORPHINE IV PRN ×4 (00:58→22:48)
[2017-01-08] MEDS: DUONEB (A & A) INH SCH ×6 (03:47→23:14)
[2017-01-08] MEDS ORDERED: VANCOMYCIN 1,200 MG in NS 250 ML IV SCH (05:00)
[2017-01-08] MEDS: ZOSYN 3.375 GM/NS 3.375 GM/50 ML IVPB IV SCH ×4 (06:30→23:07)
[2017-01-08] MEDS: NS 1,000 ML IV SCH ×2 (08:39→15:11)
--- NOTE | 2017-01-08 10:03 | PROGRESS NOTE ---
DATE: 01/08/2017 SUBJECTIVE: Mr. Funes appears comfortable on BiPAP. He did not respond. PHYSICAL EXAMINATION: Vital Signs: Temperature 98.6 degrees, pulse 95, respirations 25. HEENT and Neck: Pupils are equal, round. CVP less than 6 cm. Lungs: Clear, with scattered rhonchi in the periphery. Cardiovascular: Regular rhythm and rate without murmur or S3. Abdomen: Soft. Skin: Warm and dry. Urine Output: Close to 5 liters. LABORATORY DATA: Labs from yesterday, leukocytosis. Chemistries, potassium was a little elevated, creatinine 1.1. ASSESSMENT AND PLAN: 1. A 74-year-old with stage IV lung cancer, chronic hypoxemic respiratory failure, cachexia, recent atrial fibrillation, who presented with altered mental status and profound hypoxemia, a dense infiltrate in the left lung, and this may represent bronchial obstruction. CT scan done in November did not reveal any significant tumor on the left side. Profound hypoxemia, leukocytosis, change in chest x-ray, probably related to pneumonia. Continue present treatment. Prognosis is poor. Family wants to pursue comfort measures. 2. Nutrition is very poor, poor oral intake. 3. The family does not want him to be intubated. Continue comfort measures. 4. Reviewed his orders. I do not see any changed at this point. He is on Zosyn, and he is on Levaquin. cc: Fawad Anderson MD
--- NOTE | 2017-01-08 11:33 | PALLIATIVE CARE PROGRESS NOTE ---
DATE: 01/08/2017 SUBJECTIVE: Mr. Funes will open his eyes to verbal and tactile stimulation but he does not respond to any questions. He appears comfortable on the BiPAP. OBJECTIVE: General: This is an ill-appearing 76-year-old, male who does not appear to be in any acute distress. Cardiovascular: Regular rate and rhythm. Pulmonary: Lung sounds are diminished and slightly labored. Scattered rhonchi auscultated throughout all lung moreno. Abdomen: Soft. Extremities: Pulses are palpable. ASSESSMENT AND PLAN: The family is at the bedside and elects comfort measures for Mr. Funes. He appears very comfortable at this time. I discussed medications used for comfort with the daughter. At this time it appears that Mr. Funes's palliative performance scale is 10%. He is a DNR level 1. The palliative care team will continue to follow. Dictated by EMIL Melo for Nahum Flowers MD cc: EMIL Melo MD
[2017-01-08] MEDS: LEVAQUIN 750 MG/D5W 750 MG/150 ML IVPB IV SCH (17:07)
[2017-01-08] MEDS: ATIVAN IV PRN (20:17)
[2017-01-08] MEDS: PROTONIX IV SCH (20:18)
[2017-01-08] MEDS: SODIUM CHLORIDE 0.9% INJ SCH (20:18)
[2017-01-09] MEDS: MORPHINE IV PRN ×8 (01:59→23:39)
[2017-01-09] MEDS: NS 1,000 ML IV SCH ×2 (01:59→11:10)
[2017-01-09] MEDS: ATIVAN IV PRN ×2 (02:10→08:20)
[2017-01-09] MEDS: DUONEB (A & A) INH SCH ×6 (03:09→23:00)
[2017-01-09] MEDS: ZOSYN 3.375 GM/NS 3.375 GM/50 ML IVPB IV SCH ×2 (06:39→11:10)
--- NOTE | 2017-01-09 11:02 | PROGRESS NOTE ---
DATE: 01/09/2017 SUBJECTIVE: There is no family member in Mr. Funes's room today and he is nonverbal, so I was not able to get any interval history, but per the nursing staff, the night was uneventful. OBJECTIVE: Vital signs: Blood pressure is 137/57, pulse of 90, respirations 14, and temperature 97.4 degrees. General: Mr. Funes is a 76-year-old male. He was in bed, was under the BiPAP. HEENT: Mucosa pink. Anicteric. Neck: Supple. Chest: Air entry is bilaterally reduced. There are some bibasilar crepitations. Cardiovascular: Tachycardic with irregularly irregular heart rate. Abdomen: Soft. Questionable hepatomegaly. Extremities: No pedal edema. Central Nervous System: Patient is able to open his eyes to voice, but does not have any voluntary movement. He will withdrawal to painful stimulation. He continues to be nonverbal. LABORATORY DATA: None for today. IMAGING STUDIES: Done on 01/06/2017 shows significant atelectasis of the left lung, concerning for airway obstruction such as mucus plugging. ASSESSMENT: 1. Severe hypoxemic respiratory failure. 2. Left massive atelectasis versus pneumonia. 3. History of stage IV lung cancer. 4. Protein calorie malnutrition. 5. Poor prognosis. Currently, the patient is on levofloxacin, Zosyn, and vancomycin for possible pneumonia therapy and has not seemed to make any major improvement. Palliative Medicine is also on board and I think the family is leaning towards comfort care measures. We will be waiting on discussions today with Palliative Medicine to see if they would want to go on hospice. For now, will continue with oxygen with the BiPAP, antibiotics, and supportive measures. cc: Chicho Osborn MD
--- NOTE | 2017-01-09 14:23 | PALLIATIVE CARE PROGRESS NOTE ---
DATE: 01/09/2017 SUBJECTIVE: Mr. Funes remains in the ICU today. He is unresponsive. I have actually made 2 visits to see Mr. Funes today. On my first visit, Mr. Funes's extremities were warm with minimal mottling. However during this afternoon's visit I find that his upper extremities are cold to touch with significant mottling. During my afternoon visit his daughter is present. We further discussed comfort measures. She is agreeable to moving him out of the ICU and on to the medical floor. His plan of care will continue as comfort measures only. OBJECTIVE: General: This is an ill-appearing, 76-year-old, male who does not appear to be in any acute distress. Cardiovascular: Increased rate. Regular rhythm. Pulmonary: Lung sounds are diminished with crackles auscultated bilaterally. Abdomen: Soft. Extremities: Upper extremities are now cold to touch with mottling. Lower extremities remain somewhat warm. ASSESSMENT AND PLAN: As mentioned, I believe the plan is to move Mr. Funes from the ICU to the medical floor and continue with comfort measures only. Daughter is at the bedside currently and agreeable to that plan. Mr. Funes is a DNR level 1. His palliative performance scale is 10%. He appears very comfortable at this time. The palliative care team will continue to follow. Dictated by EMIL Melo for Nahum Flowers MD cc: EMIL Melo MD
[2017-01-09] MEDS: LACTULOSE PO SCH (14:24)
[2017-01-10] MEDS: MORPHINE IV PRN ×12 (00:17→17:48)
[2017-01-10] MEDS: DUONEB (A & A) INH SCH ×4 (03:40→15:15)
[2017-01-10] MEDS ORDERED: BLISTEX MEDICATED BERRY LIP BALM TOP PRN (04:01)
--- NOTE | 2017-01-10 09:50 | PROGRESS NOTE ---
DATE: 01/10/2017 SUBJECTIVE: Mr. Funes is comfortable off the BiPAP. He remains afebrile. He is not responsive. OBJECTIVE: Temperature 96.5 degrees, pulse 80, respirations 9, blood pressure 132/58.HEENT: Pupils are equal, round. Lungs: Are clear anterolateral. Cardiovascular: Regular rhythm and rate without murmur or S3. Abdomen: Soft. Skin: Warm and dry. ASSESSMENT AND PLAN: Patient on palliative care. He plans to move to the medical floor. Continue comfort measures, DNR level 1. Palliative performance scale apparently 10%. Continue present medications. cc: Fawad Anderson MD
--- NOTE | 2017-01-10 13:36 | CONSULTATION ---
DATE OF CONSULTATION: 01/07/2017 ADMITTING PHYSICIAN: Fawad Anderson MD REQUESTING PHYSICIAN: Fawad Anderson MD CHIEF COMPLAINT: Lung cancer. HISTORY OF PRESENT ILLNESS: Mr. Eddie Funes is a very pleasant, 76-year-old, male, well known to us with a history of non-small cell lung cancer stage IV, currently on Opdivo. The patient presented to [facility] Emergency Department, secondary to progressively worsening shortness of breath and inability to take any liquids or food. The patient was recently hospitalized and actually discharged from the hospital 1 week ago. The patient does have a history of stage IV non-small cell lung cancer on Opdivo. His last treatment was during his last hospitalization. The patient has been progressively weakening. We are consulted secondary to a history of non-small cell lung cancer on ongoing treatment with Opdivo. PAST MEDICAL HISTORY: 1. Chronic obstructive pulmonary disease. 2. Non-small cell lung cancer. 3. Pulmonary embolism. 4. Right lower extremity DVT. PAST SURGICAL HISTORY: Left knee surgery. SOCIAL HISTORY: The patient smokes 1/2 pack cigarettes daily x60 years. He drinks alcohol occasionally. He does not use illicit drugs. FAMILY HISTORY: Negative for any hematologic or oncologic problem. MEDICATIONS ON ADMISSION: 1. Effexor X-RAY. 2. Magic mouthwash. 3. Milk of magnesia. 4. Multivitamins. 5. Symbicort HFA. 6. Temazepam. 7. Tramadol. 8. Opdivo. ALLERGIES: No known drug allergies. REVIEW OF SYSTEMS: A 14 point review of systems was attempted and is unable to be obtained as patient is minimally responsive at this time. PHYSICAL EXAMINATION: General: Mr. Funes is a 76-year-old, male, lying supine in bed. Minimally responsive and somewhat dyspneic on BiPAP. Vital Signs: Temperature 96.1, blood pressure 88/62, heart rate 73, respirations are 32, O2 saturation is 81% on BiPAP at this time. HEENT: Normocephalic, atraumatic. Mucous membranes are somewhat pale and dry. Sclerae is anicteric. Extraocular movements intact. Neck: Supple. Lungs: Coarse breath sounds throughout. Chest expansion is equal bilaterally. Cardiovascular: S1, S2 is heard without murmur, rub or gallop. Abdomen: Soft, nondistended, nontender. Bowel sounds positive all quadrants. No rebound or guarding noted. Extremities: Without clubbing, cyanosis, or edema. Dermatologic: No rashes, bruises or lesions. Neurologic: The patient is minimally responsive. He has no apparent focal motor deficits. LABORATORY DATA: Hemoglobin 10.8, hematocrit 34.1, white blood cell count is 30.0. Platelets 417,000. Sodium 139, potassium 5.2, chloride 100, CO2 is 15, BUN 45, creatinine 1.1. Glucose 142, calcium is 8.7. ASSESSMENT AND PLAN: 1. Non-small cell lung cancer stage IV, currently on Opdivo with his last dose being during prior hospitalization. We will hold continued therapy until the patient's acute illness passes. 2. Right femoral vein thrombosis not currently on anticoagulation. 3. Acute respiratory failure. Currently on BiPAP. The patient and his daughter are currently requesting a do not resuscitate/do not intubate with comfort measure measures only at this time. 4. Severe chronic obstructive pulmonary disease refer to #3. We will follow along with you and make further recommendations pending outcomes. The above reflects the history, exam, assessment and plan of Dr. Agee. Dictated by EMIL Warner for Tigre Agee MD cc: EMIL Warner MD
--- NOTE | 2017-01-10 16:13 | PALLIATIVE CARE PROGRESS NOTE ---
DATE: 01/10/2017 SUBJECTIVE: Mr. Funes is now off the BiPAP. He is receiving oxygen via nasal cannula. He appears very comfortable. He is nonresponsive. OBJECTIVE: Pulmonary: Lung sounds are diminished with scattered rhonchi. Respirations are nonlabored. Cardiovascular: Regular rate and rhythm. Abdomen: Soft. Skin: Upper extremities are cold with significant mottling. Lower extremities are warm. ASSESSMENT/PLAN: Patient continues to receive comfort measures only. I believe the plan is to move him out of the ICU and onto the medical floor. He is a DNR level 1. Palliative performance scale remains 10%. The palliative care team will continue to follow. Dictated by EMIL Melo for Nahum Flowers MD cc: EMIL Melo MD
[2017-01-11] MEDS: MORPHINE IV PRN (02:31)
--- NOTE | 2017-01-11 13:27 | PROGRESS NOTE ---
DATE: 01/11/2017 Mr. Funes continued to be in extremely poor prognosis state. Currently nonverbal per the nursing staff. No acute changes overnight. OBJECTIVE: Vital signs: Blood pressure is 99/54, pulse of 87, respirations 18, temperature 97.5 degrees. General: Mr. Funes is a 76-year-old male. He is in bed. He did not seem to be in any remarkable distress. HEENT: Mucosa is pink, slightly dry. Anicteric. Acyanotic. Chest: Air entry is bilaterally reduced. There is a prolonged expiratory phase of respiration but no crackles. Abdomen: Distended, nontender. Bowel sounds are hypoactive. Extremities: No pedal edema. Distal pulses are remarkably low. There is distal discoloration of both upper and lower extremities consistent with poor perfusion. LINE PULLER: Patient will open his eyes to painful stimulation. Continues to be nonverbal and does not even move to painful stimulation. LABORATORY DATA: None for today. ASSESSMENT: 1. Severe hypoxemic respiratory failure. 2. Left massive atelectasis versus pneumonia. 3. 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 4. Protein calorie malnutrition. 5. Poor prognosis. 6. Comfort care measures. So Mr. Funes will continue comfort care. We are still pending a floor bed and we will transfer him. cc: Chicho Osborn MD
[2017-01-11] MEDS ORDERED: ATIVAN IV PRN (13:50)
[2017-01-12] MEDS ORDERED: ATIVAN PO PRN (11:18)
[2017-01-12] MEDS: ROXANOL CONC. LIQUID PO PRN ×4 (11:38→16:52)
[2017-01-12] MEDS: TRANSDERM-SCOP TD SCH (18:44)
--- NOTE | 2017-01-12 18:45 | PROGRESS NOTE ---
DATE: 01/12/2017 SUBJECTIVE: Today Mr. Funes continued to be the same. No changes overnight. OBJECTIVE: Vital signs: Blood pressure is 123/55, pulse of 87, respirations 16, temperature 97.5 degrees, patient was saturating 96% on nasal cannula. General: Mr. Funes is a 76-year- old male. He was in bed, did not seem to be in any remarkable distress. HEENT: Mucosa is dry. Anicteric and acyanotic. Neck: Supple. Lungs: Air entry is bilaterally reduced. There is prolonged expiratory phase of respiration. Few bibasilar crepitations. Abdomen: Distended, nontender. Bowel sounds are hypoactive. Extremities: No pedal edema. Distal pulses are remarkably low. There is a lot of digital discoloration of both upper and lower digits indicative of poor perfusion. CAR STOWER: Patient will barely open her eyes to very painful stimulation. LABS: No labs today. ASSESSMENT: 1. Severe hypoxemic respiratory failure. 2. Left massive atelectasis versus pneumonia. 3. 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 4. Protein calorie malnutrition. 5. Poor prognosis. 6. Comfort care measures. This morning I understand Mr. Funes lost his IV access. Would therefore switch the morphine to oral Roxanol and also Ativan for sublingual administration. He is going to continue in hospital with comfort care measures. cc: Chicho Osborn MD
[2017-01-12] MEDS: ATROPINE 1% OPHTH SOLN SL PRN ×2 (19:50→23:51)
[2017-01-13] MEDS: ATROPINE 1% OPHTH SOLN SL PRN ×2 (03:44→10:38)
--- NOTE | 2017-01-13 12:59 | PROGRESS NOTE ---
DATE: 01/13/2017 Today Mr. Funes continues to be critically sick. Currently on comfort care measures only. OBJECTIVE: Vital signs: Blood pressure is 146/113. Physical exam is not any remarkable change from days before. He continues to be completely obtunded and noncommunicative, nonverbal. Would withdraw actively to painful stimulation. ASSESSMENT: 1. Severe hypoxemic respiratory failure. 2. Left massive atelectasis versus pneumonia. 3. 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 4. Poor prognosis. 5. Protein calorie malnutrition. 6. Comfort care measures only. Today we sustained a very lengthy conversation with the daughter of Mr. Funes and recommended the possibility of home with hospice. She said she was going to consider the thought and discuss it with the other family members and get back to us. I think Mr. Funes, however, will probably demise sooner rather than later. However, if she comes up with a plan to take him home, we would be willing to assist with his transition home. cc: Chicho Osborn MD
--- NOTE | 2017-01-13 20:52 | PALLIATIVE CARE PROGRESS NOTE ---
DATE: 01/13/2017 SUBJECTIVE: Mr. Funes has now moved out of the ICU on to the medical floor. He is nonresponsive and appears comfortable. He is receiving comfort measures only. His daughter is at the bedside. OBJECTIVE: General: This is a 76-year-old male who does not appear to be in any acute distress. HEENT: Atraumatic, normocephalic. Cardiovascular: Regular rate and rhythm. Pulmonary: Lung sounds are diminished with crackles auscultated to bilateral lung moreno. Abdomen: Soft. Extremities: Upper extremities reveal significant mottling and are cool to touch. Lower extremities also reveal mottling and are cool to touch. Neuro: Nonresponsive. ASSESSMENT AND PLAN: Mr. Funes still continues to receive comfort measures only. I do feel like that Mr. Funes is stable enough to transition home if that is the family's wishes. I have discussed that with his daughter and grandson who are at the bedside. The daughter states that she would like to think about that before making a decision. As mentioned Mr. Funes appears very comfortable at this time. Palliative performance scale remains 10%. He is a DNR level 1. The palliative care team will continue to follow. Dictated by EMIL Melo for Nahum Flowers MD cc: EMIL Melo MD
[2017-01-14] MEDS: ROXANOL CONC. LIQUID PO PRN (09:59)
--- NOTE | 2017-01-14 13:16 | PROGRESS NOTE ---
DATE: 01/14/2017 SUBJECTIVE: Today Mr. Funes continues to be stable under comfort care measures. There was no family member with him at the bedside but per the nursing staff, his night was uneventful. OBJECTIVE: Vital signs: Have been reviewed. Blood pressure is 143/110; that was yesterday. There has not been any documented today. Patient is saturating 97% on 4 L. General: Patient is still stuporous. Eyes open but does not really follow any commands. Extremities: Will move very sluggishly the lower extremities to painful stimulation. There is some dark purplish discoloration of the extremities consistent with poor perfusion. ASSESSMENT: 1. Severe hypoxemic respiratory failure. 2. Left massive atelectasis versus pneumonia. 3. 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 4. Protein calorie malnutrition. 5. Poor prognosis. 6. Comfort care measures. PLAN: So today we are going to continued with the comfort care. We are still pending family members to make any decision if they would want to transition the patient home on hospice. At this point Mr. Funes is very comfortable. cc: Chicho Osborn MD
--- NOTE | 2017-01-14 14:29 | PALLIATIVE CARE PROGRESS NOTE ---
DATE: 01/14/2017 SUBJECTIVE: Mr. Funes is nonresponsive and appears comfortable. He is receiving comfort measures only. His daughter and son are at the bedside. OBJECTIVE: HEENT: Atraumatic, normocephalic. Neck: Supple. Cardiovascular: Increased rate. Irregular rhythm. Pulmonary: Lung sounds are diminished with scattered rhonchi auscultated to bilateral lung moreno. Abdomen: Soft. Extremities: Cool and mottled. ASSESSMENT/PLAN: The daughter has decided to keep Mr. Funes here at the hospital until he passes. Palliative performance scale is 10%. He appears very comfortable at this time and I expect him to pass at any time. The Palliative Care Team will continue to follow. Dictated by EMIL Melo for Nahum Flowers MD cc: EMIL Melo MD
[2017-01-14] MEDS: ATROPINE 1% OPHTH SOLN SL PRN ×2 (18:07→21:15)
--- NOTE | 2017-01-15 14:44 | PALLIATIVE CARE PROGRESS NOTE ---
DATE: 01/15/2017 SUBJECTIVE: Not much change. Mr. Funes continues to receive comfort measures only. He appears comfortable. OBJECTIVE: General: This is a 76-year-old, terminally ill male who does not appear to be in any acute distress. Cardiovascular: Regular rate and rhythm. Pulmonary: Lung sounds are greatly diminished. Respirations are nonlabored. Extremities: Mottled. ASSESSMENT AND PLAN: Mr. Funes appears comfortable. He will continue to receive comfort measures only. Palliative performance scale remains at 10%. I expect that he could pass at any time. The palliative care team will continue to follow. Dictated by EMIL Melo for Nahum Flowers MD cc: EMIL Melo MD
--- NOTE | 2017-01-15 16:16 | PROGRESS NOTE ---
DATE: 01/15/2017 SUBJECTIVE: Today, Mr. Funes continues to be the same. There were no changes overnight in his clinical picture according to the nursing staff. The daughter and the grandson and the daughter's boyfriend were in the room at the time of my encounter today. According to the daughter, she thinks the father, Mr. Funes is very comfortable. OBJECTIVE: Vital signs: Blood pressure is 87/35, pulse is 83, respirations 11, temperature 97.7. General: Physical exam is unchanged. He continues to be extremely stuporous, very minimum response in terms of withdrawal to painful stimulation. The pupils are sluggishly reactive and patient has episode of pulses and respiration. LAB: No lab work today. ASSESSMENT: 1. Severe hypoxemic respiratory failure. 2. Left massive atelectasis versus pneumonia. 3. 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 4. Protein calorie malnutrition. 5. Poor prognosis. 6. Comfort care measures. PLAN: We are going to continue with the comfort care. I think Mr. Funes is now showing more signs of clinical deterioration and I think he can pass any time soon. cc: Chicho Osborn MD
[2017-01-15] MEDS: TRANSDERM-SCOP TD SCH (17:40)
[2017-01-16] MEDS: ROXANOL CONC. LIQUID PO PRN (11:43)
--- NOTE | 2017-01-16 12:16 | PALLIATIVE CARE PROGRESS NOTE ---
DATE: 01/16/2017 SUBJECTIVE: Mr. Funes's respirations appear slightly labored. The daughter believes that he may be uncomfortable. I have requested the RN give his ordered dose of morphine. OBJECTIVE: General: This is a 76-year-old, terminally ill appearing male, who is having slight respiratory distress. Cardiovascular: Regular rate and rhythm. Pulmonary: Lung sounds are greatly diminished. Respirations are slightly labored. Abdomen: Soft. Extremities: Cool and significant mottling. ASSESSMENT AND PLAN: Mr. Funes appears to be in slight discomfort at this time. I have requested the registered nurse to give his ordered dose of morphine. It does appear that Mr. Funes is showing more signs of deterioration, considering coolness to all extremities and significant mottling. I expect that he could pass at any time. The dying process and comfort medications were explained to the daughter who is at the bedside. She did not have any further questions. Palliative performance scale remains 10%. Palliative Care Team will continue to follow. Dictated by EMIL Melo for Nahum Flowers MD cc: EMIL Melo MD
[2017-01-16 12:33] VITALS: BP 68/28
--- NOTE | 2017-01-16 16:11 | DISCHARGE SUMMARY ---
ADMISSION DATE: 01/06/2017 DISCHARGE DATE: 01/16/2017 DATE OF ADMISSION: 01/06/2017. DATE OF : 01/16/2017. TIME OF : 1:40 p.m. CONSULTATIONS DURING THIS ADMISSION: 1. Pulmonary Medicine was consulted. Patient was seen by Dr. Flowers. 2. Hematology/Oncology was consulted. Patient was seen by Dr. Agee. 3. Palliative Medicine was also consulted. IMAGING PROCEDURES DONE DURING THIS ADMISSION: None. IMAGING STUDIES OF SIGNIFICANCE: A chest x-ray was done on 01/06/2017 that showed significant atelectasis of left lung concerning for airway obstruction such as mucus plug. DIAGNOSES AT TIME OF ADMISSION: 1. History of Chronic obstructive pulmonary disease with obvious exacerbation. 2. Stage IV non-small cell lung cancer. DIAGNOSES AT THE TIME OF : 1. Severe acute hypoxemic respiratory failure. 2. Left massive atelectasis versus pneumonia. 3. 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 4. Protein calorie malnutrition. 5. Comfort care. 6. History of chronic obstructive pulmonary disease. PRESENTING COMPLAINT: Shortness of breath. HISTORY OF PRESENTING COMPLAINT: Mr. Funes is a 76-year-old, gentleman who presented to the emergency department because of shortness of breath. He was evaluated and initial x-ray did show some atelectasis with almost complete opacification of the right lung suspicious for mucus plugging. Of note, the patient has been followed up with Dr. Agee for lung cancer and was on [facility]. The patient was initially admitted to the ICU for more critical ICU care. HOSPITAL COURSE: The patient was initially admitted with IV antibiotics, gently hydrated, aggressive pulmonary toilette. However, the initial aggressive medical course did not make any remarkable improvement. Because of his underlying end stage lung cancer the family decided to make him DNR and comfort care measures. Patient was subsequently transferred from the ICU to the regular floor. Antibiotics and aggressive therapies were discontinued. Palliative Medicine was consulted. Patient was followed up religiously by the Palliative Team. On a daily basis patient was only getting comfort care. He was also evaluated by hospice and because he was uncomfortable there was no need for them to be actively involved. Today I saw Mr. Funes very early this morning. He was having some pauses in his breathing and he was having a blood pressure of about 67/30. I did inform the daughter that I think he is going to be passing shortly. At about 1:40 his attending nurse called me that there has been no respiratory effort, no cardiac heart sounds, patient has been unresponsive, pupils have been dilated, patient has no sign of vitality and was therefore pronounced at 1:40 p.m. The family has been notified. cc: Chicho Osborn MD
== END 2017-01-16 01:40 | disposition expired ==
LOC: ED 11:36 → SUATTDRO 14:12 → ICU 14:12 → 4N 01-11 13:47
PROVIDERS: ATTEND Internal Medicine